=== PATIENT | female | born 1940 | race Caucasian/White ===

== ENCOUNTER 2023-12-24 16:43 | Inpatient (IN) ==
--- NOTE | 2023-12-24 16:55 | Emergency Department Note ---
Impression & Plan Swelling of both lower extremities, SOB (shortness of breath), Atrial fibrillation with rapid ventricular response ED Provider Note NAME: JUAN FLORES AGE: 83 SEX: F : 1940 ARRIVES VIA: Walk-In INFORMANT: Patient, Family member at bedside, triage note ED PROVIDER(S): Rowdy Olson MD CHIEF COMPLAINT: Shortness of breath MEDICAL DECISION MAKING: Patient presents due to concern for shortness of breath. IV was established and blood work was obtained. [id number] obtained to evaluate for potassium. Potassium normal and the patient was ordered IV Lasix 40 mg. Patient states that she does not take a diuretic. Patient was ordered IV Lopressor to help with A-fib RVR which also may be contributory for diastolic dysfunction. Patient has a normal white count hemoglobin and platelet counts patient's kidney function is unremarkable. Hyponatremia noted at 124 with hypokalemia 3.4. Urine and serum osmolality ordered. Patient's BNP is elevated at 678. Troponin is negative. Urinalysis negative for blood or infection. I did update the patient about the findings and recommendations. The patient has had improvement since Lasix and has since urinated. I did speak with the on-call hospital service Dr. Chambers and Yoni Alejandro PA-C and the patient was admitted to the medicine service. Critical Care: I have personally spent 35 minutes of critical care time in direct management of this patient. This includes bedside care, interpretation of diagnostic studies, and testing, discussion with consultants, patient, and family members, and other require inpatient management activities. This 35 minutes is in excess of all separately billable procedures. Discussion w/ other healthcare providers: Yoni Alejandro PA-C [facility] Prior /Outside records reviewed: None Differential diagnosis: Reactive airway disease, pneumonia, pneumothorax, COPD, CHF, ACS, pulmonary embolism, musculoskeletal, GERD as well as other pathologies were considered. Irregularly irregular Diagnostics, as interpreted by me: ECG: A-fib with RVR, rate 113, normal QRS duration, normal axis no ST elevations motion artifact in V6. Possible Q wave in V2 and V3 Cardiac monitoring: An order was placed for continuous cardiac monitoring. The monitor shows a rate of 112 with tachycardic and irregularly irregular rhythm. Patient was placed on pulse oximetry Medical decision rules: None Imaging studies: I informally interpreted the patient's chest x-ray shows pulmonary vascular congestion with formal report to follow. HPI: Patient presents due to concern for worsening shortness of breath. The patient does not locally but was appear for a bridal shower. Patient states that she does have a known history of A-fib is anticoagulated on Xarelto. Patient states she is compliant with her medications. Patient has noticed some increased lower extremity swelling and shortness of breath. The patient's shortness of breath is with exertion at rest and does have occasional orthopnea. Patient denies any chest pains no cough or fever. Patient states that she has noticed some recurrence of swelling which typically resolves but it has been more hesitant to dissipate just in the last 24 to 48 hours. Patient denies any falls or trauma. Patient states in addition to the Xarelto she is on benazepril amlodipine and metoprolol. 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 Family member at bedside, triage note HOME MEDICATIONS: See Below ALLERGIES: See Below VITALS: See Below PHYSICAL EXAMINATION: GENERAL: NAD, non-toxic. EYE EXAM: Normal conjunctiva. PERRL, no anisocoria and EOM's grossly intact w/o pain. OROPHARYNX: Moist mucus membranes, grossly normal dentition. NECK: Trachea midline, no stridor. LUNGS: Clear to auscultation. Normal chest wall mechanics. HEART: NSR, no MRG. ABDOMEN: Abdomen soft, non-tender, no masses, no rebound or guarding. BACK: No CVA TTP. SKIN: No rashes and no bruising. UPPER EXTREMITIES: Upper extremities are grossly normal. LOWER EXTREMITIES: Grossly normal, 3+ symmetric pitting edema without any calf pain or erythema. NEURO EXAM: A&O x3, cranial nerves II-XII grossly intact, normal speech, moves all 4 extremities. Past Med/Surg History Problem List (Updated 12/25/23 @ 11:35 by Rowdy Olson MD) Atrial fibrillation with rapid ventricular response (Acute) Nausea without vomiting Hyponatremia HTN, goal below 130/80 Chronic atrial fibrillation Acute right heart failure SOB (shortness of breath) (Acute) Swelling of both lower extremities (Acute) Spinal stenosis Atrial fibrillation HTN (hypertension) Surgical History History of hysterectomy History of eyelid surgery Hx of appendectomy H/O total knee replacement Family History Other Heart disease Osteoporosis Social History Smoking Status: Never smoker Second Hand Exposure: No; Do You Dip or Chew Tobacco: No; Tobacco Cessation Education Requested by Patient: No Hx Alcohol Use: No Hx Substance Use: No Preferred Language: Greenlandic Communication Ability: Effective Youth Ministry Director Required: No Beliefs That Will Affect Care: None Current Living Situation: Alone Current Living Situation Comment: Lives at home alone, From [facility] Other Information That Helps Us Care for You: No Feels Safe at Home: Yes Safety Concerns: Feels Safe At This Time Assistive Devices: None Allergies Allergies Allergy/AdvReac Type Severity Reaction Status Date / Time pollen extracts Allergy Intermediate ITCHY Verified 12/24/23 17:48 EYES, SNEEZING, CONGESTION tree and shrub pollen Allergy Intermediate ITCHY Verified 12/24/23 17:48 EYES, SNEEZING, CONGESTION Sulfa (Sulfonamide Allergy Unknown HAPPENED Verified 12/24/23 17:48 Antibiotics) A SMALL CHILD Home Meds Home Medications Medication Instructions Recorded Confirmed amlodipine 10 mg tablet 10 mg PO QPM 12/24/23 12/24/23 benazepril 20 1 tab PO QAM 12/24/23 12/24/23 mg-hydrochlorothiazide 25 mg tablet biotin 10 mg tablet 10 mg PO DAILY 12/24/23 12/24/23 cholecalciferol (vitamin D3) 50 50 mcg PO DAILY 12/24/23 12/24/23 mcg (2,000 unit) capsule (Vitamin D3) metoprolol succinate 200 mg 200 mg PO QAM 12/24/23 12/24/23 tablet,extended release 24 hr pregabalin 100 mg capsule 100 mg PO HS 12/24/23 12/24/23 pregabalin 75 mg capsule 75 mg PO BID 12/24/23 12/24/23 rivaroxaban 20 mg tablet (Xarelto) 20 mg PO QPM 12/24/23 12/24/23 Results & Data (ED) Vital Signs Vital Signs - 24 hr 12/24/23 16:47 12/24/23 16:55 12/24/23 16:57 Temperature 36.4 C L Temperature Source Temporal Artery Scan Pulse Rate 124 H Pulse Rate [Apical] 113 H Respiratory Rate 21 20 Respiratory Effort / Characteristics Respiratory Depth Blood Pressure 151/96 H Blood Pressure [Left Arm] Blood Pressure Mean 114 Blood Pressure Mean [Left Arm] Pulse Oximetry 96 93 Oxygen Delivery Method Room Air Room Air Sepsis Recent Fever Within 48 Hours No Sepsis New/Unexplained Change in Mental Status N/A Sepsis Action Taken by Nursing No Action Required 12/24/23 17:00 12/24/23 17:11 12/24/23 18:01 Temperature Temperature Source Pulse Rate 101 H Pulse Rate [Apical] 91 H Respiratory Rate 20 Respiratory Effort / Characteristics Non-Labored Respiratory Depth Normal Blood Pressure Blood Pressure [Left Arm] Blood Pressure Mean Blood Pressure Mean [Left Arm] Pulse Oximetry 98 95 Oxygen Delivery Method Room Air Room Air Sepsis Recent Fever Within 48 Hours Sepsis New/Unexplained Change in Mental Status Sepsis Action Taken by Nursing 12/24/23 18:14 12/24/23 18:15 Temperature Temperature Source Pulse Rate 91 H Pulse Rate [Apical] 91 H Respiratory Rate 27 H Respiratory Effort / Characteristics Non-Labored Respiratory Depth Normal Blood Pressure 145/87 H Blood Pressure [Left Arm] 145/87 H Blood Pressure Mean Blood Pressure Mean [Left Arm] 106 Pulse Oximetry 94 Oxygen Delivery Method Room Air Sepsis Recent Fever Within 48 Hours Sepsis New/Unexplained Change in Mental Status Sepsis Action Taken by Half-Way Medications Current Medication List: was personally reviewed by me Laboratory Data Attestation: I reviewed the patient's lab results. 12/25/23 07:37 12/25/23 07:37 Lab Results 12/24/23 12/24/23 12/24/23 Range/Units 17:00 17:11 17:55 WBC 7.45 (4.8-10.8) K/ul RBC 4.28 (4.20-5.40) M/uL Hgb 12.2 (12.0-16.0) g/dl POC Hgb 13.6 (12.0-16.0) g/dl Hct 35.6 L (37.0-47.0) % POC Hct 40 (37-47) % MCV 83.2 (80.0-100.0) fL MCH 28.5 (25.0-34.0) pg MCHC 34.3 (32.0-36.0) g/dL RDW Std Deviation 39.1 (36.4-46.3) fL RDW Coeff of Lance 13.0 (11.5-14.5) % Plt Count 224 (130-400) K/uL MPV 9.4 (9.4-12.4) fL Immature Gran % (Auto) 0.3 % Neut % (Auto) 71.3 % Lymph % (Auto) 18.3 % Rutherford % (Auto) 8.6 % Eos % (Auto) 0.8 % Baso % (Auto) 0.7 % Neut # (Auto) 5.32 (1.40-6.50) K/uL Lymph # (Auto) 1.36 (1.20-3.40) K/uL Rutherford # (Auto) 0.64 H (0.11-0.59) K/uL Eos # (Auto) 0.06 (0.00-0.50) K/uL Baso # (Auto) 0.05 (0.00-0.20) K/uL Immature Gran # (Auto) 0.02 (0.01-0.20) K/uL POC Sodium 125 L (135-144) mmol/L Sodium 124 L (136-145) mmol/L POC Potassium 3.4 (3.3-5.0) mmol/L Potassium 3.4 L (3.5-5.1) mmol/L POC Chloride 86 L (101-112) mmol/L Chloride 87 L (98-107) mmol/L Carbon Dioxide 26 (21-32) mmol/L POC Total CO2 26 (24-31) mmol/L Anion Gap 11 (3-11) POC Anion Gap 17.0 (16-25) mmol/L POC BUN 10 (7-18) mg/dl BUN 12 (6-23) mg/dl Creatinine 0.73 (0.6-1.2) mg/dl POC Creatinine 0.8 (0.6-1.3) mg/dl Est Cr Clr Drug Dosing Not Reportable Est GFR ( Amer) 87.0 ml/min Est GFR (Non-Af Amer) 75.1 ml/min BUN/Creatinine Ratio 16.4 (10-20) Glucose 115 H (70-99(Fasting)) mg/dl POC Glucose (other) 119 H (70-99) mg/dl Osmolality 259 L (280-300) mOsm/kg Calcium 10.0 (8.6-10.3) mg/dl POC Ioniz Calcium Mark 1.12 (1.12-1.32) mmol/l Phosphorus 3.1 (2.5-4.9) mg/dl Magnesium 1.7 (1.7-2.4) mg/dl Total Bilirubin 1.3 H (0.2-1.0) mg/dl AST 32 (13-39) U/L ALT 14 (7-52) U/L Alkaline Phosphatase 183 H (34-104) U/L Troponin I High Sens 8.8 (0-14) pg/ml B-Natriuretic Peptide 678 H (0-100) pg/ml Total Protein 7.5 (6.0-8.3) gm/dl Albumin 4.8 (3.4-5.0) gm/dl Globulin 2.7 (2.5-4.0) gm/dl Albumin/Globulin Ratio 1.8 (0.9-2) Urine Color Yellow Urine Appearance Clear (Clear) Urine pH 6.0 (4.5-7.5) Ur Specific Garrison 1.011 (1.000-1.030) Urine Protein Negative (Negative) Urine Glucose (UA) Negative (Negative) Urine Ketones Negative (Negative) Urine Blood Negative (Negative) Urine Nitrite Negative (Negative) Urine Bilirubin Negative (Negative) Urine Urobilinogen Negative (Negative) Ur Leukocyte Esterase Negative (Negative) Urine Osmolality 352 L (500-800) mOsm/kg Urine Sodium 97 mmol/L Urine Potassium 38.8 mmol/L Urine Chloride 122 mmol/L Administered Medications Acetaminophen (Acetaminophen 500 Mg Tab) 1,000 mg PO Q8H RACHEL Stop: 01/23/24 21:59 Last Admin: 12/25/23 05:32 Dose: 1,000 mg Documented By: Admin: 12/24/23 22:39 Dose: 1,000 mg Documented By: DAAmado Furosemide (Furosemide 40 Mg/4 Ml Vial) 40 mg IV QAM RACHEL Stop: 01/24/24 08:59 Last Admin: 12/25/23 08:08 Dose: 40 mg Documented By: BT Magnesium Sulfate/Dextrose (Magnesium Sulfate / D5w) 1 gm in 100 mls @ 50 mls/hr IV ONE ONE Stop: 12/25/23 12:00 Last Admin: 12/25/23 11:14 Dose: 50 mls/hr Documented By: BT Lisinopril (Lisinopril 10 Mg Tab) [facility] Stop: 01/24/24 08:59 Last Admin: 12/25/23 08:07 Dose: 10 mg Documented By: BT Magnesium Oxide (Magnesium Oxide 400 Mg Tab) 400 mg PO BID [facility] Stop: 01/24/24 10:14 Last Admin: 12/25/23 11:14 Dose: 400 mg Documented By: BT Metoprolol Succinate (Metoprolol Succ 50mg Ext Rel Tab) 200 [facility] Stop: 01/24/24 08:59 Last Admin: 12/25/23 08:07 Dose: 200 mg Documented By: BT Metoprolol Tartrate (Metoprolol Tartrate 1 Mg/Ml Vial) 5 mg IV Q5M PRN PRN Reason: Tachycardia Stop: 01/23/24 18:02 Last Admin: 12/24/23 18:15 Dose: 5 mg Documented By: TATYANA Oxycodone HCl (Oxycodone Hcl Ir 5 Mg Tab (Immediate Release)) 5 mg PO Q6H PRN PRN Reason: Moderate Pain (Scale 4, 5, 6) Stop: 01/07/24 19:02 Last Admin: 12/24/23 22:39 Dose: 5 mg Documented By: LANA Potassium Chloride (Potassium Chloride Crtab 20 Meq Tabcr) 40 meq [facility] Stop: 01/24/24 08:59 Last Admin: 12/25/23 08:07 Dose: 40 meq Documented By: LOU Rivaroxaban (Rivaroxaban 20 Mg Tab) 20 mg PO QDD [facility] Stop: 01/23/24 21:59 Last Admin: 12/24/23 23:08 Dose: 20 mg Documented By: LANA Vitamin D (Cholecalciferol 25 Mcg (1000 Units) Tab) 50 mcg PO DAILY [facility] Stop: 01/24/24 08:59 Last Admin: 12/25/23 08:07 Dose: 50 mcg Documented By: LOU Discontinued Medications Furosemide (Furosemide 40 Mg/4 Ml Vial) 40 mg IV ONE ONE Stop: 12/24/23 17:15 Last Admin: 12/24/23 17:19 Dose: 40 mg Documented By: TATYANA Ondansetron HCl (Ondansetron Inj 2 Mg/Ml 2 Ml Vial) 4 mg IV NOW STA Stop: 12/24/23 20:19 Last Admin: 12/24/23 20:48 Dose: 4 mg Documented By: MLAmado Potassium Chloride (Potassium Chloride Crtab 20 Meq Tabcr) 40 meq PO NOW STA Stop: 12/24/23 18:25 Last Admin: 12/24/23 18:44 Dose: 40 meq Documented By: ES Potassium Chloride (Potassium Chloride Crtab 20 Meq Tabcr) 20 meq PO NOW STA Stop: 12/25/23 06:47 Last Admin: 12/25/23 08:11 Dose: 20 meq Documented By: BT Imaging Data Radiologist's Impression: Chest X-Ray 12/24/23 17:10 SINGLE VIEW CHEST CLINICAL HISTORY: Dyspnea FINDINGS: 2 AP, portable, upright chest radiographs are obtained. No prior studies are available for comparison at the time of dictation. The heart is enlarged noting atherosclerotic calcification of the thoracic aorta. There is pulmonary vascular congestion. No airspace consolidation or large pleural effusion is identified. Scarring/atelectasis is seen at the lung bases. No pneumothorax is seen. The skeletal structures are osteopenic. The bony thorax is grossly intact. IMPRESSION: Cardiomegaly with mild pulmonary vascular congestion. ACT 112: Negative or not required by law. Electronically signed by: Abe Chaudhary M.D. 12/24/2023 5:56 PM Discharge Plan Visit Data Chief Complaint: Shortness of Breath/Dyspnea Stated Complaint: SOB,POSSIBLE MED REACTION ED Provider: Rowdy Olson Discharge Problem: Swelling of both lower extremities, SOB (shortness of breath), Atrial fibrillation with rapid ventricular response Patient Disposition: Admitted As Inpatient Discharge Instructions Interventions: ED Discharge Assessment Last Done: 12/24/23 21:50
[2023-12-24] MEDS: FUROSEMIDE 40 MG/4 ML VIAL IV ONE (17:19)
[2023-12-24 17:24] LABS: iSTAT Creatinine 0.8 mg/dl (0.6-1.3); iSTAT Hemoglobin 13.6 g/dl (12.0-16.0); iSTAT Ionized Calcium 1.12 mmol/l (1.12-1.32); iSTAT Potassium 3.4 mmol/L (3.3-5.0)
[2023-12-24 17:33] LABS: Basophils # (auto) 0.05 K/uL (0.00-0.20); Basophils % (auto) 0.7 %; Eosinophils # (auto) 0.06 K/uL (0.00-0.50); Eosinophils % (auto) 0.8 %; Hematocrit (blood only) 35.6 % (37.0-47.0); Hemoglobin 12.2 g/dl (12.0-16.0); Immature Granulocytes # (auto) 0.02 K/uL (0.01-0.20); Immature Granulocytes % (auto) 0.3 %; Lymphocytes # (auto) 1.36 K/uL (1.20-3.40); Lymphocytes % (auto) 18.3 %; Mean Corpuscular Hemoglobin 28.5 pg (25.0-34.0); Mean Corpuscular Hgb Conc 34.3 g/dL (32.0-36.0); Mean Corpuscular Volume 83.2 fL (80.0-100.0); Mean Platelet Volume 9.4 fL (9.4-12.4); Monocytes # (auto) 0.64 K/uL (0.11-0.59); Monocytes % (auto) 8.6 %; Neutrophils # (auto) 5.32 K/uL (1.40-6.50); Neutrophils % (auto) 71.3 %; Platelet Count 224 K/uL (130-400); RDW Standard Deviation 39.1 fL (36.4-46.3); Red Blood Count 4.28 M/uL (4.20-5.40); White Blood Count 7.45 K/ul (4.8-10.8)
[2023-12-24 17:52] LABS: Alanine Aminotransferase 14 U/L (7-52); Albumin Globulin Ratio 1.8 (0.9-2); Albumin Level 4.8 gm/dl (3.4-5.0); Alkaline Phosphatase 183 U/L (34-104); Anion Gap 11 (3-11); Aspartate Aminotransferase 32 U/L (13-39); BUN Creatinine Ratio 16.4 (10-20); Bilirubin,Total 1.3 mg/dl (0.2-1.0); Blood Urea Nitrogen 12 mg/dl (6-23); Carbon Dioxide 26 mmol/L (21-32); Chloride 87 mmol/L (98-107); Est GFR (Non-African American) 75.1 ml/min; Globulin 2.7 gm/dl (2.5-4.0); Glucose 115 mg/dl (70-99(Fasting)); Magnesium 1.7 mg/dl (1.7-2.4); Phosphorus 3.1 mg/dl (2.5-4.9); Potassium 3.4 mmol/L (3.5-5.1); Sodium 124 mmol/L (136-145); Total Protein 7.5 gm/dl (6.0-8.3)
--- NOTE | 2023-12-24 17:57 | XRay Report ---
SINGLE VIEW CHEST CLINICAL HISTORY: Dyspnea FINDINGS: 2 AP, portable, upright chest radiographs are obtained. No prior studies are available for comparison at the time of dictation. The heart is enlarged noting atherosclerotic calcification of th e thoracic aorta. There is pulmonary vascular congestion. No airspace consolidation or large pleural effusion is identified. Scarring/atelectasis is seen at the lung bases. No pneumothorax is seen. The skeletal structures are osteopenic. The bony thorax is grossly intact. IMPRESSION: Cardiomegaly with mild pulmonary vascular congestion. ACT 112: Negative or not required by law. Electronically signed by: Abe Chaudhary M.D. 12/24/2023 5:56 PM
[2023-12-24 18:10] LABS: Appearance Urine Clear (Clear); Bilirubin Urine Negative (Negative); Blood Urine Negative (Negative); Color Urine Yellow; Glucose Urine UA Negative (Negative); Ketones Urine Negative (Negative); Leukocyte Esterase Urine Negative (Negative); Nitrite Urine Negative (Negative); Protein Urine Negative (Negative); Specific Gravity Urine 1.011 (1.000-1.030); Urobilinogen Urine Negative (Negative)
[2023-12-24] MEDS: METOPROLOL TARTRATE 1 MG/ML VIAL IV PRN (18:15)
[2023-12-24 18:26] LABS: Urine Potassium 38.8 mmol/L
--- NOTE | 2023-12-24 18:34 | History & Physical Report ---
Date of Service December 24, 2023 Assessment & Plan (1) Swelling of both lower extremities: (2) SOB (shortness of breath): Plan: This is an 83yo F with a PMH of HTN, atrial fibrillation on Xarelto, spinal stenosis and other medical problems listed below who presents with worsening swelling of lower extremities x 2 days. BLE edema and 12# weight gain over the past week BNP 678, HS troponin WNL CXR with Cardiomegaly with mild pulmonary vascular congestion No known h/o CHF Lives in [place] (in town for a family event), follows with cardiology at [facility] in [place] Given 40mg IV lasix in ED Strict I&Os, daily weights, low sodium diet Cardiology consult, 2D echo (3) Atrial fibrillation: Plan: Continue Toprol, Xarelto for stroke ppx (4) HTN (hypertension): Plan: Holding amlodipine with BLE edema, holding hctz but will switch devon to lisinopril while admitted, continue Toprol as above (5) Spinal stenosis: Plan: Worsening lower left sided back pain with radiation down leg - has evaluation with spinal surgery at [facility] next week Holding lyrics as it's possibly contributing to BLE edema Scheduled Tylenol, PRN oxy for moderate pain and PRN dilaudid for severe pain DVT Ppx: Xarelto Code status:DNR PCP: Lives in [place] Dispo: Admitted to PCU Patient seen in collaboration with Dr. Chambers. Please see addendum. I spent a total of 75 minutes coordinating, documenting, and providing care for this patient excluding time spent in the performance of separately billed services. History of Present Illness Chief Complaint: BLE edema Primary Care Provider: ROXANN ADEN This is an 83yo F with a PMH of HTN, atrial fibrillation on Xarelto, spinal stenosis and other medical problems listed below who presents with worsening swelling of lower extremities x 2 days. Patient lives in [place] but is in town for a bridal shower and has developed SOB and endorses 12 pound weight gain in the past week. Recent medication change of increased Lyrica dose for worsening radicular pain from spinal stenosis. Follows with cardiology at [facility] in [place]. Did not take Lyrica since yesterday afternoon. No amlodipine since yesterday. Denies history of CHF. No F/C, headache, lightheadedness, CP, N/V, abd pain, dysuria, diarrhea or constipation. Allergies Allergy/AdvReac Type Severity Reaction Status Date / Time pollen extracts Allergy Intermediate ITCHY Verified 12/24/23 17:48 EYES, SNEEZING, CONGESTION tree and shrub pollen Allergy Intermediate ITCHY Verified 12/24/23 17:48 EYES, SNEEZING, CONGESTION Sulfa (Sulfonamide Allergy Unknown HAPPENED Verified 12/24/23 17:48 Antibiotics) A SMALL CHILD Home Medications Medication Instructions Recorded Confirmed Type amlodipine 10 mg tablet 10 mg PO QPM 12/24/23 12/24/23 History benazepril 20 1 tab PO QAM 12/24/23 12/24/23 History mg-hydrochlorothiazide 25 mg tablet biotin 10 mg tablet 10 mg PO DAILY 12/24/23 12/24/23 History cholecalciferol (vitamin D3) 50 50 mcg PO DAILY 12/24/23 12/24/23 History mcg (2,000 unit) capsule (Vitamin D3) metoprolol succinate 200 mg 200 mg PO QAM 12/24/23 12/24/23 History tablet,extended release 24 hr pregabalin 100 mg capsule 100 mg PO HS 12/24/23 12/24/23 History pregabalin 75 mg capsule 75 mg PO BID 12/24/23 12/24/23 History rivaroxaban 20 mg tablet (Xarelto) 20 mg PO QPM 12/24/23 12/24/23 History Past Med/Surg History Problem List SOB (shortness of breath) Swelling of both lower extremities Spinal stenosis Atrial fibrillation HTN (hypertension) Surgical History History of hysterectomy History of eyelid surgery Hx of appendectomy H/O total knee replacement Family History Other Heart disease Osteoporosis Social History Smoking Status: Never smoker Hx Alcohol Use: Yes Alcohol type: wine Alcohol Intake Frequency: 2-3 x/Week Hx Substance Use: No Preferred Language: Latvian Feels Safe at Home: Yes Review of Systems Review of Systems: At least ten systems reviewed and negative except as noted in the HPI. Physical Exam Physical Exam: Please see Dr. Chambers' addendum for physical exam. Results & Data Results & Data Vital Signs (Past 12 Hours) Vital Signs Temp Pulse Pulse Resp BP BP Pulse Ox 12/24/23 18:15 91 H 145/87 H 12/24/23 18:14 91 H 27 H 145/87 H 94 12/24/23 18:01 91 H 20 95 12/24/23 17:11 98 12/24/23 17:00 101 H 12/24/23 16:57 113 H 20 12/24/23 16:55 93 12/24/23 16:47 36.4 C L 124 H 21 151/96 H 96 O2 Del Method 12/24/23 18:15 12/24/23 18:14 Room Air 12/24/23 18:01 Room Air 12/24/23 17:11 Room Air 12/24/23 17:00 12/24/23 16:57 12/24/23 16:55 Room Air 12/24/23 16:47 Room Air Laboratory Results Short CBC 12/24/23 Range/Units 17:00 WBC 7.45 (4.8-10.8) K/ul Hgb 12.2 (12.0-16.0) g/dl Hct 35.6 L (37.0-47.0) % Plt Count 224 (130-400) K/uL BMP 12/24/23 17:00 Sodium 124 L Potassium 3.4 L Chloride 87 L Carbon Dioxide 26 BUN 12 Creatinine 0.73 Glucose 115 H Calcium 10.0 Liver Function 12/24/23 Range/Units 17:00 Total Bilirubin 1.3 H (0.2-1.0) mg/dl AST 32 (13-39) U/L ALT 14 (7-52) U/L Alkaline Phosphatase 183 H (34-104) U/L Albumin 4.8 (3.4-5.0) gm/dl Urine 12/24/23 Range/Units 17:55 Urine Color Yellow Urine Appearance Clear (Clear) Urine pH 6.0 (4.5-7.5) Ur Specific [place] 1.011 (1.000-1.030) Urine Protein Negative (Negative) Urine Glucose (UA) Negative (Negative) Diagnostic Findings Chest X-Ray 12/24/23 17:10 SINGLE VIEW CHEST CLINICAL HISTORY: Dyspnea FINDINGS: 2 AP, portable, upright chest radiographs are obtained. No prior studies are available for comparison at the time of dictation. The heart is enlarged noting atherosclerotic calcification of the thoracic aorta. There is pulmonary vascular congestion. No airspace consolidation or large pleural effusion is identified. Scarring/atelectasis is seen at the lung bases. No pneumothorax is seen. The skeletal structures are osteopenic. The bony thorax is grossly intact. IMPRESSION: Cardiomegaly with mild pulmonary vascular congestion. ACT 112: Negative or not required by law. Electronically signed by: Abe Chaudhary M.D. 12/24/2023 5:56 PM ECG Additional Comments: EKG reviewed - a fib with RVR 113 bpm Code Status & VTE Plan VTE Prophylaxis Plan VTE Prophylaxis will be ordered: Yes Supervising Physician Co-Signing Physician Notes I have seen and discussed the case with the collaborating advanced practitioner. I agree with the above H&P. I have reviewed and confirmed the patients medical history, the findings on physical examination, and the patients diagnosis and treatment plan with PA-C and agree with the information documented. In short, Ms. Browne is an 83 year old woman with history of atrial fibrillation on xarelto, HTN, spinal stenosis who is admitted for SOB and swelling concerning for new heart failure exacerbation. Patient reports starting increased dosing of pregabalin 1 month ago, and in last week has felt her abdo men bloating, as well as her weight uptrending by ten pounds. In last 2 days, she noted SOB and BLE swelling. Denies chest pain or palpitations.. GENERAL APPEARANCE: AxOx4, generally well-appearing female no acute distress. HEENT: NC, AT. MMM. EOMI, clear conjunctiva, oropharynx clear. NECK: Supple without lymphadenopathy. No stiffness or restricted ROM. HEART: irregularly irregular, tachycardic to 90s-110s in room LUNGS: CTAB, moving air well. No crackles or wheezes are heard. ABDOMEN: firm, nontender, nondistended with good bowel sounds heard. BACK: No CVAT, no obvious deformity. EXTREMITIES: Without cyanosis, clubbing. BLE 2+ pitting edema NEUROLOGICAL: Grossly nonfocal. Alert and oriented, moving all 4 extremities. CN not formally tested but appear grossly intact. Observed to ambulate with normal gait. Skin: Warm and dry without any rash. #Hypervolemic Hyponatremia NA 125, osmo 259 low osmo urine suspect 2/2 volume -IV lasix Repeat BMP this evening #Acute Heart Failure, New #Volume overload Patient presents with new symptoms of heart failure and evidence of volume overload. Suspect secondary to volume from pregabalin, vs tachymediated from a fib Denies history of HF or being hospitalized for diuersis/volume issues BNP 678 EKG a fib with rate 113 - HgbA1C, Lipid panel, TSH - Formal TTE, telemetry - Strict I/O, daily standing weights - Goal net negative: 1-2 L - Home diuretics: HCTZ - GDMT: *BetaB: continue metoprolol 200mg qam *RAAS: benazepril to lisinopril 20mg qam consider further gdmt contingent on course Cards consult -Discontinue amlodipine and pregabalin - s/p lasix 40 IV in the ED - Will start aggressive diuresis with IV lasix 40mg for goal net negative 1-2L - Strict I/Os, daily weights - HH 1.8L fluid restriction - Replete K>4, Mg>2 #Atrial Fibrillation, not cllear if permanent or paroxysmal denies symptoms - Rate Control: meotprolol 200mg qm XL - Anticoagulation: xarelto - CBC, BMP, TSH #Spinal stenosis tylenol mild, oxy po moderate, dilaudid severe Hold pregablain given notable volume retention rest of plan as above I spent a total of 35 minutes coordinating, documenting, and providing care for this patient excluding time spent in the performance of separately billed services. All of the aforementioned completed outside of collaborating with the assigned advanced practitioner for a full treatment plan. I have reviewed the advanced practitioner's documentation, and I agree with, and take responsibility for the plan of care
[2023-12-24] MEDS: POTASSIUM CHLORIDE CRTAB 20 MEQ TABCR PO STA (18:44)
[2023-12-24 18:58] LABS: Troponin I High Sensitivity 8.8 pg/ml (0-14)
[2023-12-24] MEDS ORDERED: HYDROmorphone INJ 0.5 MG/0.5 ML SYR IV PRN (19:03)
[2023-12-24] MEDS: ONDANSETRON INJ 2 MG/ML 2 ML VIAL IV STA (20:48)
[2023-12-24 20:59] LABS: BUN Creatinine Ratio 14.7 (10-20); Calcium 9.5 mg/dl (8.6-10.3); Creatinine Clr Calc Pharmacy 52.8 ml/min; Est GFR (African American) 84.2 ml/min; Est GFR (Non-African American) 72.7 ml/min; Potassium 3.4 mmol/L (3.5-5.1)
[2023-12-24] MEDS: ACETAMINOPHEN 500 MG TAB PO SCH (22:39)
[2023-12-24] MEDS: oxyCODONE HCL IR 5 MG TAB (IMMEDIATE RELEASE) PO PRN (22:39)
[2023-12-24] MEDS: RIVAROXABAN 20 MG TAB PO SCH (23:08)
--- NOTE | 2023-12-25 07:19 | Electrocardiogram Report ---
Test Reason : Blood Pressure : / mmHG Vent. Rate : 113 BPM Atrial Rate : 000 BPM P-R Int : 000 ms QRS Dur : 082 ms QT Int : 282 ms P-R-T Axes : 000 080 -48 degrees QTc Int : 386 ms Atrial fibrillation with rapid ventricular response Low voltage QRS Abnormal ECG No previous ECGs available Confirmed by Je Mckeon ([id number]) on 12/25/2023 7:18:32 AM Referred By: REFERRED SELF Confirmed By:Vinnie Mckeon
[2023-12-25] MEDS: POTASSIUM CHLORIDE CRTAB 20 MEQ TABCR PO SCH (08:07)
[2023-12-25] MEDS: METOPROLOL SUCC 50MG EXT REL TAB PO SCH (08:07)
[2023-12-25] MEDS: CHOLECALCIFEROL 25 MCG (1000 UNITS) TAB PO SCH (08:07)
[2023-12-25] MEDS: lisinopril 10 MG TAB PO SCH (08:07)
[2023-12-25] MEDS: FUROSEMIDE 40 MG/4 ML VIAL IV SCH ×2 (08:08→15:53)
[2023-12-25] MEDS: POTASSIUM CHLORIDE CRTAB 20 MEQ TABCR PO STA (08:11)
[2023-12-25 08:21] LABS: Hematocrit (blood only) 33.8 % (37.0-47.0); Hemoglobin 11.6 g/dl (12.0-16.0); Mean Corpuscular Hemoglobin 28.3 pg (25.0-34.0); Mean Corpuscular Hgb Conc 34.3 g/dL (32.0-36.0); Mean Corpuscular Volume 82.4 fL (80.0-100.0); Mean Platelet Volume 9.4 fL (9.4-12.4); Platelet Count 198 K/uL (130-400); RDW Coefficient of Variation 12.8 % (11.5-14.5); RDW Standard Deviation 38.8 fL (36.4-46.3); White Blood Count 6.62 K/ul (4.8-10.8)
[2023-12-25 08:37] LABS: BUN Creatinine Ratio 13.7 (10-20); Calcium 9.4 mg/dl (8.6-10.3); Chol HDL Ratio 1.6 (0-5); Creatinine Clr Calc Pharmacy 53.2 ml/min; Est GFR (Non-African American) 75.1 ml/min; Magnesium 1.6 mg/dl (1.7-2.4); Phosphorus 3.4 mg/dl (2.5-4.9); Potassium 3.5 mmol/L (3.5-5.1)
[2023-12-25 08:51] LABS: Thyroid Stimulating Hormone 4.501 uIu/ml (0.300-4.500)
[2023-12-25 09:26] LABS: T4 Free Thyroxine 1.2 ng/dl (0.61-1.60)
--- NOTE | 2023-12-25 09:59 | Hospitalist Progress Note ---
Date of Service December 25, 2023 Assessment & Plan (1) Swelling of both lower extremities: (2) SOB (shortness of breath): Plan: This is an 83yo F with a PMH of HTN, atrial fibrillation on Xarelto, spinal stenosis and other medical problems listed below who presents with worsening swelling of lower extremities x 2 days. BLE edema and 12 lbs weight gain over the past week BNP 678, HS troponin WNL CXR with Cardiomegaly with mild pulmonary vascular congestion No known h/o CHF Lives in [place] (in town for a family event), follows with cardiology at [facility] in [place] Given 40mg IV lasix in ED -> cont. w/ 40 iv lasix daily Strict I&Os, daily weights, low sodium diet Cardiology consulted, 2D echo - pending TSH 4.5 A1c pending (3) Atrial fibrillation: Plan: Continue Toprol, Xarelto for stroke ppx (4) HTN (hypertension): Plan: Holding amlodipine with BLE edema, holding hctz but will switch devon to lisino pril while admitted, continue Toprol as above (5) Spinal stenosis: Plan: Worsening lower left sided back pain with radiation down leg - has evaluation with spinal surgery at [facility] next week Holding lyrica as it's possibly contributing to BLE edema Scheduled Tylenol, PRN oxy for moderate pain and PRN dilaudid for severe pain DVT Ppx: Xarelto Code status:DNR PCP: Lives in [place] Dispo: PCU Admission and Anticipated Discharge Date Admission Date: December 24, 2023 Subjective Pt seen in follow up of LE edema (concern for CHF), shortness of breath cardiology consulted, echo pending Pt is laying in bed in NAD Currently denies any shortness of breath and says LE edema is much improved from yesterday, received IV lasix No fever, chills, chest pain, palpitations, abd. pain Reportedly, she has a long standing hx of Afib on xarelto Review of Systems Review of Systems: All systems reviewed & are unremarkable except as noted in Subjective Physical Exam Physical Exam: GENERAL APPEARANCE: AxOx4, generally well-appearing female no acute distress. HEENT: NC, AT. MMM. EOMI NECK: Supple HEART: irregularly irregular, HR in 70s LUNGS: CTAB, moving air well. No crackles or wheezes are heard. ABDOMEN: nontender, nondistended, +bowel sounds heard. BACK: No CVAT, no obvious deformity. EXTREMITIES: BLE 1+ edema (improved), moves extremities NEUROLOGICAL: Alert and oriented, answers appropriately, speech fluent, moving extremities. Skin: Warm and dry Results & Data Results & Data Vital Signs (Past 12 Hours) Vital Signs Temp Pulse Resp BP Pulse Ox O2 Del Method 12/25/23 07:40 36.8 C 92 H 18 129/83 93 Room Air 12/25/23 02:52 36.6 C 100 H 18 145/99 H 90 Room Air 12/24/23 22:50 Room Air 12/24/23 22:37 36.5 C 101 H 20 150/103 H 91 Room Air Laboratory Results 12/25/23 12/24/23 12/24/23 Range/Units 07:37 20:31 17:55 WBC 6.62 (4.8-10.8) K/ul RBC 4.10 L (4.20-5.40) M/uL Hgb 11.6 L (12.0-16.0) g/dl POC Hgb (12.0-16.0) g/dl Hct 33.8 L (37.0-47.0) % POC Hct (37-47) % MCV 82.4 (80.0-100.0) fL MCH 28.3 (25.0-34.0) pg MCHC 34.3 (32.0-36.0) g/dL RDW Std Deviation 38.8 (36.4-46.3) fL RDW Coeff of Lance 12.8 (11.5-14.5) % Plt Count 198 (130-400) K/uL MPV 9.4 (9.4-12.4) fL Immature Gran % (Auto) % Neut % (Auto) % Lymph % (Auto) % [place] % (Auto) % Eos % (Auto) % Baso % (Auto) % Neut # (Auto) (1.40-6.50) K/uL Lymph # (Auto) (1.20-3.40) K/uL [place] # (Auto) (0.11-0.59) K/uL Eos # (Auto) (0.00-0.50) K/uL Baso # (Auto) (0.00-0.20) K/uL Immature Gran # (Auto) (0.01-0.20) K/uL POC Sodium (135-144) mmol/L Sodium 125 L 123 L (136-145) mmol/L POC Potassium (3.3-5.0) mmol/L Potassium 3.5 3.4 L (3.5-5.1) mmol/L POC Chloride (101-112) mmol/L Chloride 88 L 87 L (98-107) mmol/L Carbon Dioxide 27 25 (21-32) mmol/L POC Total CO2 (24-31) mmol/L Anion Gap 10 11 (3-11) POC Anion Gap (16-25) mmol/L POC BUN (7-18) mg/dl BUN 10 11 (6-23) mg/dl Creatinine 0.73 0.75 (0.6-1.2) mg/dl POC Creatinine (0.6-1.3) mg/dl Est Cr Clr Drug Dosing 53.2 52.8 Est GFR ( Amer) 87.0 84.2 ml/min Est GFR (Non-Af Amer) 75.1 72.7 ml/min BUN/Creatinine Ratio 13.7 14.7 (10-20) Glucose 89 129 H (70-99(Fasting)) mg/dl POC Glucose (other) (70-99) mg/dl Estimat Average Glucose Pending Hemoglobin A1c Pending Osmolality (280-300) mOsm/kg Calcium 9.4 9.5 (8.6-10.3) mg/dl POC Ioniz Calcium Mark (1.12-1.32) mmol/l Phosphorus 3.4 (2.5-4.9) mg/dl Magnesium 1.6 L (1.7-2.4) mg/dl Total Bilirubin (0.2-1.0) mg/dl AST (13-39) U/L ALT (7-52) U/L Alkaline Phosphatase (34-104) U/L Troponin I High Sens (0-14) pg/ml B-Natriuretic Peptide (0-100) pg/ml Total Protein (6.0-8.3) gm/dl Albumin (3.4-5.0) gm/dl Globulin (2.5-4.0) gm/dl Albumin/Globulin Ratio (0.9-2) Triglycerides 54 (0-150) mg/dl Cholesterol 120 (0-200) mg/dl LDL Cholesterol, Calc 36 mg/dl VLDL Cholesterol, Calc 11 (0-30) mg/dl HDL Cholesterol 73 mg/dl Cholesterol/HDL Ratio 1.6 (0-5) TSH 4.501 H (0.300-4.500) uIu/ml Free T4 1.20 (0.61-1.60) ng/dl Urine Color Yellow Urine Appearance Clear (Clear) Urine pH 6.0 (4.5-7.5) Ur Specific [place] 1.011 (1.000-1.030) Urine Protein Negative (Negative) Urine Glucose (UA) Negative (Negative) Urine Ketones Negative (Negative) Urine Blood Negative (Negative) Urine Nitrite Negative (Negative) Urine Bilirubin Negative (Negative) Urine Urobilinogen Negative (Negative) Ur Leukocyte Esterase Negative (Negative) Urine Osmolality 352 L (500-800) mOsm/kg Urine Sodium 97 mmol/L Urine Potassium 38.8 mmol/L Urine Chloride 122 mmol/L 12/24/23 12/24/23 Range/Units 17:11 17:00 WBC 7.45 (4.8-10.8) K/ul RBC 4.28 (4.20-5.40) M/uL Hgb 12.2 (12.0-16.0) g/dl POC Hgb 13.6 (12.0-16.0) g/dl Hct 35.6 L (37.0-47.0) % POC Hct 40 (37-47) % MCV 83.2 (80.0-100.0) fL MCH 28.5 (25.0-34.0) pg MCHC 34.3 (32.0-36.0) g/dL RDW Std Deviation 39.1 (36.4-46.3) fL RDW Coeff of [place] 13.0 (11.5-14.5) % Plt Count 224 (130-400) K/uL MPV 9.4 (9.4-12.4) fL Immature Gran % (Auto) 0.3 % Neut % (Auto) 71.3 % Lymph % (Auto) 18.3 % [place] % (Auto) 8.6 % Eos % (Auto) 0.8 % Baso % (Auto) 0.7 % Neut # (Auto) 5.32 (1.40-6.50) K/uL Lymph # (Auto) 1.36 (1.20-3.40) K/uL [place] # (Auto) 0.64 H (0.11-0.59) K/uL Eos # (Auto) 0.06 (0.00-0.50) K/uL Baso # (Auto) 0.05 (0.00-0.20) K/uL Immature Gran # (Auto) 0.02 (0.01-0.20) K/uL POC Sodium 125 L (135-144) mmol/L Sodium 124 L (136-145) mmol/L POC Potassium 3.4 (3.3-5.0) mmol/L Potassium 3.4 L (3.5-5.1) mmol/L POC Chloride 86 L (101-112) mmol/L Chloride 87 L (98-107) mmol/L Carbon Dioxide 26 (21-32) mmol/L POC Total CO2 26 (24-31) mmol/L Anion Gap 11 (3-11) POC Anion Gap 17.0 (16-25) mmol/L POC BUN 10 (7-18) mg/dl BUN 12 (6-23) mg/dl Creatinine 0.73 (0.6-1.2) mg/dl POC Creatinine 0.8 (0.6-1.3) mg/dl Est Cr Clr Drug Dosing Not Reportable Est GFR ( Amer) 87.0 ml/min Est GFR (Non-Af Amer) 75.1 ml/min BUN/Creatinine Ratio 16.4 (10-20) Glucose 115 H (70-99(Fasting)) mg/dl POC Glucose (other) 119 H (70-99) mg/dl Estimat Average Glucose Hemoglobin A1c Osmolality 259 L (280-300) mOsm/kg Calcium 10.0 (8.6-10.3) mg/dl POC Ioniz Calcium Mark 1.12 (1.12-1.32) mmol/l Phosphorus 3.1 (2.5-4.9) mg/dl Magnesium 1.7 (1.7-2.4) mg/dl Total Bilirubin 1.3 H (0.2-1.0) mg/dl AST 32 (13-39) U/L ALT 14 (7-52) U/L Alkaline Phosphatase 183 H (34-104) U/L Troponin I High Sens 8.8 (0-14) pg/ml B-Natriuretic Peptide 678 H (0-100) pg/ml Total Protein 7.5 (6.0-8.3) gm/dl Albumin 4.8 (3.4-5.0) gm/dl Globulin 2.7 (2.5-4.0) gm/dl Albumin/Globulin Ratio 1.8 (0.9-2) Triglycerides (0-150) mg/dl Cholesterol (0-200) mg/dl LDL Cholesterol, Calc mg/dl VLDL Cholesterol, Calc (0-30) mg/dl HDL Cholesterol mg/dl Cholesterol/HDL Ratio (0-5) TSH (0.300-4.500) uIu/ml Free T4 (0.61-1.60) ng/dl Urine Color Urine Appearance (Clear) Urine pH (4.5-7.5) Ur Specific [place] (1.000-1.030) Urine Protein (Negative) Urine Glucose (UA) (Negative) Urine Ketones (Negative) Urine Blood (Negative) Urine Nitrite (Negative) Urine Bilirubin (Negative) Urine Urobilinogen (Negative) Ur Leukocyte Esterase (Negative) Urine Osmolality (500-800) mOsm/kg Urine Sodium mmol/L Urine Potassium mmol/L Urine Chloride mmol/L Medications Administered Current Inpatient Medications Acetaminophen (Acetaminophen 500 Mg Tab) 1,000 mg PO Q8H [facility] Stop: 01/23/24 21:59 Last Admin: 12/25/23 05:32 Dose: 1,000 mg Furosemide (Furosemide 40 Mg/4 Ml Vial) 40 mg IV [facility] Stop: 01/24/24 08:59 Last Admin: 12/25/23 08:08 Dose: 40 mg Hydromorphone HCl (Hydromorphone Inj 0.5 Mg/0.5 Ml Syr) 0.5 mg IV Q6H PRN PRN Reason: Severe Pain (Scale 7, 8, 9,10) Stop: 01/07/24 19:02 Lisinopril (Lisinopril 10 Mg Tab) 10 mg PO [facility] Stop: 01/24/24 08:59 Last Admin: 12/25/23 08:07 Dose: 10 mg Metoprolol Succinate (Metoprolol Succ 50mg Ext Rel Tab) 200 mg PO [facility] Stop: 01/24/24 08:59 Last Admin: 12/25/23 08:07 Dose: 200 mg Metoprolol Tartrate (Metoprolol Tartrate 1 Mg/Ml Vial) 5 mg IV Q5M PRN PRN Reason: Tachycardia Stop: 01/23/24 18:02 Last Admin: 12/24/23 18:15 Dose: 5 mg Oxycodone HCl (Oxycodone Hcl Ir 5 Mg Tab (Immediate Release)) 5 mg PO Q6H PRN PRN Reason: Moderate Pain (Scale 4, 5, 6) Stop: 01/07/24 19:02 Last Admin: 12/24/23 22:39 Dose: 5 mg Potassium Chloride (Potassium Chloride Crtab 20 Meq Tabcr) 40 meq PO QAM [facility] Stop: 01/24/24 08:59 Last Admin: 12/25/23 08:07 Dose: 40 meq Rivaroxaban (Rivaroxaban 20 Mg Tab) 20 mg PO QDD [facility] Stop: 01/23/24 21:59 Last Admin: 12/24/23 23:08 Dose: 20 mg Vitamin D (Cholecalciferol 25 Mcg (1000 Units) Tab) 50 mcg PO DAILY [facility] Stop: 01/24/24 08:59 Last Admin: 12/25/23 08:07 Dose: 50 mcg
--- NOTE | 2023-12-25 10:31 | Cardiology Consultation ---
<Statement entered by Patti Vann MD - 12/25/23 17:44> I have reviewed the advanced practitioner's documentation on the date of service referenced in note, and I agree with, and take responsibility for the plan of care. 83-year-old female with known history of chronic atrial fibrillation on Xarelto hypertension was visiting family here from [place] presented with significant weight gain and shortness of breath. On exam bilateral pitting pedal edema regular heart rate Impression and plan acute on chronic right heart failure with severe tricuspid regurgitation Echo reviewed with patient and family at bedside Continue with IV diuresis Low-salt diet Sleep study as outpatient She is going to follow-up with her primary highway maintainer at [facility] for further evaluation of her right heart failure I spent a total of [25] minutes coordinating, documenting, and providing care for this patient excluding time spent in the performance of separately billed s ervices or time spent by another provider. Date of Consultation December 25, 2023 Assessment & Plan (1) Hyponatremia: (2) Nausea without vomiting: (3) Acute right heart failure: (4) Chronic atrial fibrillation: (5) HTN, goal below 130/80: Plan Volume overload. Hypervolemic hyponatremia. Decreased oral intake noted over the last couple days. Sodium 124 mmol/L on presentation. Chronically prescribed hydrochlorothiazide. Acute decompensated right heart failure with high-dose calcium channel abhi and Lyrica likely contributing factors to volume overload. Discontinue hydrochlorothiazide Discontinue amlodipine Continue IV furosemide Supplement potassium orally Add spironolactone if OK with Nephrology Consider washing out LAURA inhibitor and transitioning to Entresto Continue guideline directed beta-abhi therapy with metoprolol succinate Strict I's and O's, daily weights on the same standing scale Resting echocardiography pending Recommend outpatient evaluation for sleep apnea and/or nocturnal hypoxemia. Atrial fibrillation. Chronic. Asymptomatic. Recommend rate control strategy with metoprolol succinate, continue chronic anticoagulation. Hypertension. See above. I spent a total of 55 minutes on the date of service in preparation, delivery, and documentation of the care provided to this patient excluding any time spent in the performance of separately billed services. This visit was a split-shared visit with the substantive portion of the medical decision making performed by the supervising highway maintainer/billing provider. History of Present Illness Reason for Consultation: Acute congestive heart failure Requesting Physician: Dr. Chambers Attending Physician: Dr. Ramos History of Present Illness Ms. Sierra Browne is a very pleasant 83-year-old female who is being seen at the request of Dr. Chambers. Reason for consultation is acute congestive heart failure. Patient lives in [place], [place], arriving to this area Tuesday to visit family - her son lives in this area, here for her granddaughters bridal shower. Patient has a history of chronic atrial fibrillation for which she is prescribed metoprolol succinate and Xarelto anticoagulation. Her highway maintainer in [place] recently moved and she established with a new provider , scheduled to see them again this upcoming . She has a history of hypertension for which she is prescribed benazepril hydrochlorothiazide 2024 and amlodipine at 10 mg/day. She notes having spinal stenosis and following with Pain Management, prescribed Lyrica in August 2023 Patient notes worsening shortness of breath, diffuse fluid retention, 20 pound weight gain over the past 2 weeks. She notes decreased appetite and nausea without vomiting over the last couple days. She denies chest pain. No palpitations. No orthopnea or PND to accompany the abdominal bloating and bilateral lower extremity peripheral edema. No dizziness or syncope. No current fevers or chills. No bleeding issues, denying hemoptysis, melena, hematochezia, or hematuria. Compliance with anticoagulation noted. Past Medical and Surgical History: Chronic atrial fibrillation, prescribed metoprolol succinate 200 mg/day and chronic rivaroxaban (Xarelto) anticoagulation Hypertension, prescribed benazepril hydrochlorothiazide 2024, amlodipine at 10 mg/day, metoprolol succinate 200 mg/day Rheumatic fever as a child Spinal stenosis Hysterectomy Appendectomy Knee replacement Eyelid surgery Social History: Alcohol: Glass of wine most nights. No tobacco. No illegal drug use. Lives in [place], [place]. 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 Family History: Father with colon cancer. Mother had severe osteoporosis. Two brothers and two sisters without cardiac issues Allergies Allergy/AdvReac Type Severity Reaction Status Date / Time pollen extracts Allergy Intermediate ITCHY Verified 12/24/23 17:48 EYES, SNEEZING, CONGESTION tree and shrub pollen Allergy Intermediate ITCHY Verified 12/24/23 17:48 EYES, SNEEZING, CONGESTION Sulfa (Sulfonamide Allergy Unknown HAPPENED Verified 12/24/23 17:48 Antibiotics) A SMALL CHILD Home Medications Medication Instructions Recorded Confirmed Type amlodipine 10 mg tablet 10 mg PO QPM 12/24/23 12/24/23 History benazepril 20 1 tab PO QAM 12/24/23 12/24/23 History mg-hydrochlorothiazide 25 mg tablet biotin 10 mg tablet 10 mg PO DAILY 12/24/23 12/24/23 History cholecalciferol (vitamin D3) 50 50 mcg PO DAILY 12/24/23 12/24/23 History mcg (2,000 unit) capsule (Vitamin D3) metoprolol succinate 200 mg 200 mg PO QAM 12/24/23 12/24/23 History tablet,extended release 24 hr pregabalin 100 mg capsule 100 mg PO HS 12/24/23 12/24/23 History pregabalin 75 mg capsule 75 mg PO BID 12/24/23 12/24/23 History rivaroxaban 20 mg tablet (Xarelto) 20 mg PO QPM 12/24/23 12/24/23 History Patient History Surgical History History of hysterectomy History of eyelid surgery Hx of appendectomy H/O total knee replacement Family History Other Heart disease Osteoporosis Social History Smoking Status: Never smoker Second Hand Exposure: No; Do You Dip or Chew Tobacco: No; Tobacco Cessation Education Requested by Patient: No Hx Alcohol Use: No Hx Substance Use: No Preferred Language: Citizen Of [place] Communication Ability: Effective Spout Worker Required: No Beliefs That Will Affect Care: None Current Living Situation: Alone Current Living Situation Comment: Lives at home alone, From [facility] Other Information That Helps Us Care for You: No Feels Safe at Home: Yes Safety Concerns: Feels Safe At This Time Assistive Devices: None Review of Systems Review of Systems: Complete Review of Systems is as stated above, negative, or noncontributory. Physical Exam Physical Exam: General: A&Ox3. Pleasant. Comfortable. Cooperative. Somewhat lethargic. HENT: Normocephalic. Atraumatic. Eyes: PER. Conjunctiva pink, sclera clear. Neck: JVD. Heart: Irregularly irregular at 80 bpm. Systolic murmur heard at the lower left sternal border. No diastolic murmur. No rub. Lungs: Clear to auscultation. Abdomen: +BS. Soft. Nontender. No masses or organomegaly. Extremities: 1-2+ edema. No clubbing. No cyanosis. Limited neurological examination is without focal deficits. Pulses: radial=2/4, posterior tibial=1/4. Results & Data Vital Signs (Past 12 Hours) Vital Signs Temp Pulse Resp BP Pulse Ox O2 Del Method 12/25/23 08:00 Room Air 12/25/23 07:40 36.8 C 92 H 18 129/83 93 Room Air 12/25/23 02:52 36.6 C 100 H 18 145/99 H 90 Room Air 12/24/23 22:50 Room Air 12/24/23 22:37 36.5 C 101 H 20 150/103 H 91 Room Air Laboratory Results Cardiac Enzymes 12/24/23 Range/Units 17:00 AST 32 (13-39) U/L Troponin I High Sens 8.8 (0-14) pg/ml B-Natriuretic Peptide 678 H (0-100) pg/ml Coagulation 12/24/23 Range/Units 17:00 B-Natriuretic Peptide 678 H (0-100) pg/ml Lipids 12/25/23 Range/Units 07:37 Triglycerides 54 (0-150) mg/dl Cholesterol 120 (0-200) mg/dl HDL Cholesterol 73 mg/dl Cholesterol/HDL Ratio 1.6 (0-5) CBC 12/24/23 12/25/23 Range/Units 17:00 07:37 WBC 7.45 6.62 (4.8-10.8) K/ul RBC 4.28 4.10 L (4.20-5.40) M/uL Hgb 12.2 11.6 L (12.0-16.0) g/dl Hct 35.6 L 33.8 L (37.0-47.0) % Plt Count 224 198 (130-400) K/uL Neut # (Auto) 5.32 (1.40-6.50) K/uL Lymph # (Auto) 1.36 (1.20-3.40) K/uL [place] # (Auto) 0.64 H (0.11-0.59) K/uL Eos # (Auto) 0.06 (0.00-0.50) K/uL Baso # (Auto) 0.05 (0.00-0.20) K/uL Comprehensive Metabolic Panel 12/24/23 12/24/23 12/25/23 Range/Units 17:00 20:31 07:37 Sodium 124 L 123 L 125 L (136-145) mmol/L Potassium 3.4 L 3.4 L 3.5 (3.5-5.1) mmol/L Chloride 87 L 87 L 88 L (98-107) mmol/L Carbon Dioxide 26 25 27 (21-32) mmol/L BUN 12 11 10 (6-23) mg/dl Creatinine 0.73 0.75 0.73 (0.6-1.2) mg/dl Glucose 115 H 129 H 89 (70-99(Fasting)) mg/dl Calcium 10.0 9.5 9.4 (8.6-10.3) mg/dl AST 32 (13-39) U/L ALT 14 (7-52) U/L Alkaline Phosphatase 183 H (34-104) U/L Total Protein 7.5 (6.0-8.3) gm/dl Albumin 4.8 (3.4-5.0) gm/dl Intake and Output 12/24/23 12/25/23 12/25/23 22:59 06:59 14:59 Intake Total 120 / 120 Balance 120 / 120 Intake: Oral 120 / 120 Other: Other Intake Source sips # Unmeasured Voids 1 1 Weight 74.253 kg 74.3 kg Weight Measurement Method Standing Scale Standing Scale Diagnostic Findings Chest x-ray was interpreted by the radiologist as revealing cardiomegaly with mild pulmonary vascular congestion. Telemetry: Atrial fibrillation initially with rapid ventricular response, currently rate controlled. No significant bradycardia.
[2023-12-25] MEDS: MAGNESIUM SULFATE / D5W 1 GM/100 ML BAG IV ONE (11:14)
[2023-12-25] MEDS: MAGNESIUM OXIDE 400 MG TAB PO SCH (11:14)
--- NOTE | 2023-12-25 15:12 | Nephrology Consultation ---
Date of Consultation December 25, 2023 Assessment & Plan (1) Hyponatremia: Hypervolemic Hyponatremia in the setting of Acute CHF. Also was on HCTZ at home. She is also barely eating any solid food but still drinking a good bit. No further workup needed. needs FFR 1500 ml per day and low salt diet. raise lasix to 40 iv bid, May need even higher dose. urine should look very dilute to know that the dose if effective. Check I and O. NO HCTZ ever again. She will need loop diuretics at discharge. Higher protein diet. may need protein Supplement Would not use Aldactone quite yet. Avoid Lyrica and Amlodipine for now as they make edema worse. (2) Acute right heart failure: She will need loop diuretics at discharge. Would not use Aldactone quite yet. Avoid Lyrica and Amlodipine for now as they make edema worse. History of Present Illness Reason for Consultation: Hyponatremia Attending Physician: Leif Ramos MD History of Present Illness 83/F with HTN, atrial fibrillation on Xarelto, spinal stenosis and other medical problems listed below who presented to ED with worsening swelling of lower extremities x 2 days. Patient lives in [place] but is in town for a [employer] shower and has developed SOB and had 12 pound weight gain in the past week. Recent medication change of increased Lyrica dose for worsening radicular pain from spinal stenosis. Follows with cardiology at [facility] in [place]. Noted to have Low na of 123. She does take HCTZ at home. CXR shows Pulm congestion and has got one dose of lasix 40 iv. Denies history of hyponatremia, CHF. No F/C, headache, lightheadedness, CP, N/V, abd pain, dysuria, diarrhea or constipation. ROS--See HPI. otherwise 12 systems reviewed and negative Physical Exam Physical Exam: General: A&Ox3. Pleasant. Comfortable. Cooperative. Somewhat lethargic. HENT: Normocephalic. Atraumatic. Eyes: PER. Conjunctiva pink, sclera clear. Neck: JVD. Heart: Irregularly irregular at 80 bpm. Systolic murmur heard at the lower left sternal border. No diastolic murmur. No rub. Lungs: Clear to auscultation. Abdomen: +BS. Soft. Nontender. No masses or organomegaly. Extremities: 1-2+ edema. Allergies Allergy/AdvReac Type Severity Reaction Status Date / Time pollen extracts Allergy Intermediate ITCHY Verified 12/24/23 17:48 EYES, SNEEZING, CONGESTION tree and shrub pollen Allergy Intermediate ITCHY Verified 12/24/23 17:48 EYES, SNEEZING, CONGESTION Sulfa (Sulfonamide Allergy Unknown HAPPENED Verified 12/24/23 17:48 Antibiotics) A SMALL CHILD Home Medications Medication Instructions Recorded Confirmed Type amlodipine 10 mg tablet 10 mg PO QPM 12/24/23 12/24/23 History benazepril 20 1 tab PO QAM 12/24/23 12/24/23 History mg-hydrochlorothiazide 25 mg tablet biotin 10 mg tablet 10 mg PO DAILY 12/24/23 12/24/23 History cholecalciferol (vitamin D3) 50 50 mcg PO DAILY 12/24/23 12/24/23 History mcg (2,000 unit) capsule (Vitamin D3) metoprolol succinate 200 mg 200 mg PO QAM 12/24/23 12/24/23 History tablet,extended release 24 hr pregabalin 100 mg capsule 100 mg PO HS 12/24/23 12/24/23 History pregabalin 75 mg capsule 75 mg PO BID 12/24/23 12/24/23 History rivaroxaban 20 mg tablet (Xarelto) 20 mg PO QPM 12/24/23 12/24/23 History Patient History Surgical History History of hysterectomy History of eyelid surgery Hx of appendectomy H/O total knee replacement Family History Other Heart disease Osteoporosis Social History Smoking Status: Never smoker Second Hand Exposure: No; Do You Dip or Chew Tobacco: No; Tobacco Cessation Education Requested by Patient: No Hx Alcohol Use: No Hx Substance Use: No Preferred Language: Swedish Communication Ability: Effective Canary Breeder Required: No Beliefs That Will Affect Care: None Current Living Situation: Alone Current Living Situation Comment: Lives at home alone, From [facility] Other Information That Helps Us Care for You: No Feels Safe at Home: Yes Safety Concerns: Feels Safe At This Time Assistive Devices: None Results & Data Vital Signs (Past 12 Hours) Vital Signs Temp Pulse Resp BP Pulse Ox O2 Del Method 12/25/23 11:34 36.5 C 97 H 18 120/74 91 Room Air 12/25/23 08:00 Room Air 12/25/23 07:40 36.8 C 92 H 18 129/83 93 Room Air Laboratory Results reviewed Diagnostic Findings CXr--shows CHF
[2023-12-26] MEDS: MAGNESIUM SULFATE / D5W 1 GM/100 ML BAG IV ONE (01:59)
[2023-12-26 06:22] LABS: Hematocrit (blood only) 35.7 % (37.0-47.0); Hemoglobin 12.1 g/dl (12.0-16.0); Mean Corpuscular Hemoglobin 28.3 pg (25.0-34.0); Mean Corpuscular Hgb Conc 33.9 g/dL (32.0-36.0); Mean Corpuscular Volume 83.6 fL (80.0-100.0); Mean Platelet Volume 9.2 fL (9.4-12.4); Platelet Count 173 K/uL (130-400); RDW Coefficient of Variation 12.9 % (11.5-14.5); RDW Standard Deviation 39.1 fL (36.4-46.3); Red Blood Count 4.27 M/uL (4.20-5.40); White Blood Count 5.94 K/ul (4.8-10.8)
[2023-12-26 06:29] LABS: BUN Creatinine Ratio 10.8 (10-20); Calcium 9.2 mg/dl (8.6-10.3); Creatinine Clr Calc Pharmacy 51.5 ml/min; Est GFR (African American) 85.6 ml/min; Est GFR (Non-African American) 73.9 ml/min; Magnesium 2.1 mg/dl (1.7-2.4); Phosphorus 2.7 mg/dl (2.5-4.9); Potassium 3.4 mmol/L (3.5-5.1)
[2023-12-26] MEDS: POTASSIUM CHLORIDE CRTAB 20 MEQ TABCR PO STA (07:40)
[2023-12-26 08:06] LABS: Estimated Average Glucose 111 mg/dl; Hemoglobin A1C 5.5 % (4.5-5.6)
--- NOTE | 2023-12-26 09:45 | Hospitalist Progress Note ---
Date of Service December 26, 2023 Assessment & Plan (1) Swelling of both lower extremities: (2) SOB (shortness of breath): Plan: This is an 83yo F with a PMH of HTN, atrial fibrillation on Xarelto, spinal stenosis and other medical problems listed below who presents with worsening swelling of lower extremities x 2 days. BLE edema and 12 lbs weight gain over the past week BNP 678, HS troponin WNL CXR with Cardiomegaly with mild pulmonary vascular congestion No known h/o CHF Lives in [place] (in town for a family event), follows with cardiology at [facility] in [place] Given 40mg IV lasix in ED -> cont. w/60 iv lasix bid - (nephrology managing) Strict I&Os, daily weights, low sodium diet Echo -LVEF 55 to 60%. RV is moderately dilated. RV systolic function is mild to moderately reduced. There is severe tricuspid regurg. RV systolic pressure is elevated at 40 to 50 mmHg. Cardiology consulted, and following - cont. IV lasix as above. Stop amlodipine, lyrica, also stop HCTZ (given hyponatremia) TSH 4.5 A1c 5.5% (3) Atrial fibrillation: Plan: Continue Toprol, Xarelto for stroke ppx (4) HTN (hypertension): Plan: Holding amlodipine with BLE edema, holding hctz (d/t hyponatremia) - added lisinopril while admitted, continue Toprol as above (5) Spinal stenosis: Plan: Worsening lower left sided back pain with radiation down leg - has evaluation with spinal surgery at [facility] next week Holding lyrica as it's possibly contributing to BLE edema Scheduled Tylenol, PRN oxy for moderate pain and PRN dilaudid for severe pain DVT Ppx: Xarelto Code status:DNR PCP: Lives in [place] Dispo: PCU Admission and Anticipated Discharge Date Admission Date: December 24, 2023 Subjective Pt seen in follow up of LE edema, shortness of breath -> right heart failure cardiology and nephrology consulted Pt is sitting up in bed in [facility], family present at the bedside Currently denies any shortness of breath, feels LE edema is improved, on IV lasix No fever, chills, chest pain, palpitations, abd. pain Reportedly, she has a long standing hx of Afib on xarelto Review of Systems Review of Systems: All systems reviewed & are unremarkable except as noted in Subjective Physical Exam Physical Exam: GENERAL APPEARANCE: AxOx4, generally well-appearing female no acute distress. HEENT: NC, AT. MMM. EOMI NECK: Supple HEART: irregularly irregular, HR in 70s LUNGS: CTAB, moving air well. No crackles or wheezes are heard. ABDOMEN: nontender, nondistended, +bowel sounds heard. BACK: No CVAT, no obvious deformity. EXTREMITIES: BLE 1+ edema (improved), moves extremities NEUROLOGICAL: Alert and oriented, answers appropriately, speech fluent, moving extremities. Skin: Warm and dry Results & Data Results & Data Vital Signs (Past 12 Hours) Vital Signs Temp Pulse Pulse Resp BP Pulse Ox O2 Del Method 12/26/23 08:07 81 12/26/23 07:43 36.9 C 91 H 17 136/89 93 Room Air 12/26/23 03:37 36.5 C 99 H 16 144/88 H 94 Room Air 12/26/23 00:00 98 H 12/25/23 23:41 36.9 C 97 H 20 148/97 H 93 Room Air Laboratory Results 12/26/23 12/25/23 Range/Units 05:43 07:37 WBC 5.94 (4.8-10.8) K/ul RBC 4.27 (4.20-5.40) M/uL Hgb 12.1 (12.0-16.0) g/dl Hct 35.7 L (37.0-47.0) % MCV 83.6 (80.0-100.0) fL MCH 28.3 (25.0-34.0) pg MCHC 33.9 (32.0-36.0) g/dL RDW Std Deviation 39.1 (36.4-46.3) fL RDW Coeff of Lance 12.9 (11.5-14.5) % Plt Count 173 (130-400) K/uL MPV 9.2 L (9.4-12.4) fL Sodium 126 L (136-145) mmol/L Potassium 3.4 L (3.5-5.1) mmol/L Chloride 88 L (98-107) mmol/L Carbon Dioxide 29 (21-32) mmol/L Anion Gap 9 (3-11) BUN 8 (6-23) mg/dl Creatinine 0.74 (0.6-1.2) mg/dl Est Cr Clr Drug Dosing 51.5 ml/min Est GFR ( Amer) 85.6 ml/min Est GFR (Non-Af Amer) 73.9 ml/min BUN/Creatinine Ratio 10.8 (10-20) Glucose 106 H (70-99(Fasting)) mg/dl Estimat Average Glucose 111 mg/dl Hemoglobin A1c 5.5 (4.5-5.6) % Calcium 9.2 (8.6-10.3) mg/dl Phosphorus 2.7 (2.5-4.9) mg/dl Magnesium 2.1 (1.7-2.4) mg/dl Medications Administered Current Inpatient Medications Acetaminophen (Acetaminophen 500 Mg Tab) 1,000 mg PO Q8H [facility] Stop: 01/23/24 21:59 Last Admin: 12/26/23 05:49 Dose: 1,000 mg Furosemide (Furosemide 40 Mg/4 Ml Vial) 40 mg IV BIDM [facility] Stop: 01/24/24 15:14 Last Admin: 12/26/23 08:19 Dose: 40 mg Hydromorphone HCl (Hydromorphone Inj 0.5 Mg/0.5 Ml Syr) 0.5 mg IV Q6H PRN PRN Reason: Severe Pain (Scale 7, 8, 9,10) Stop: 01/07/24 19:02 Lisinopril (Lisinopril 10 Mg Tab) 10 mg PO [facility] Stop: 01/24/24 08:59 Last Admin: 12/26/23 08:19 Dose: 10 mg Magnesium Oxide (Magnesium Oxide 400 Mg Tab) 400 mg PO BID [facility] Stop: 01/24/24 10:14 Last Admin: 12/26/23 08:19 Dose: 400 mg Metoprolol Succinate (Metoprolol Succ 50mg Ext Rel Tab) 200 mg PO [facility] Stop: 01/24/24 08:59 Last Admin: 12/26/23 08:19 Dose: 200 mg Metoprolol Tartrate (Metoprolol Tartrate 1 Mg/Ml Vial) 5 mg IV Q5M PRN PRN Reason: Tachycardia Stop: 01/23/24 18:02 Last Admin: 12/24/23 18:15 Dose: 5 mg Oxycodone HCl (Oxycodone Hcl Ir 5 Mg Tab (Immediate Release)) 5 mg PO Q6H PRN PRN Reason: Moderate Pain (Scale 4, 5, 6) Stop: 01/07/24 19:02 Last Admin: 12/26/23 03:35 Dose: 5 mg Potassium Chloride (Potassium Chloride Crtab 20 Meq Tabcr) 40 meq PO QAM [facility] Stop: 01/24/24 08:59 Last Admin: 12/26/23 08:18 Dose: 40 meq Rivaroxaban (Rivaroxaban 20 Mg Tab) 20 mg PO QDD [facility] Stop: 01/23/24 21:59 Last Admin: 12/25/23 15:53 Dose: 20 mg Vitamin D (Cholecalciferol 25 Mcg (1000 Units) Tab) 50 mcg PO DAILY [facility] Stop: 01/24/24 08:59 Last Admin: 12/26/23 08:19 Dose: 50 mcg
--- NOTE | 2023-12-26 13:05 | Cardiology Progress Note ---
Date of Service December 26, 2023 Assessment & Plan (1) Hyponatremia: (2) Nausea without vomiting: (3) Acute right heart failure: (4) Chronic atrial fibrillation: (5) HTN, goal below 130/80: Plan Volume overload. Hypervolemic hyponatremia. Decreased oral intake noted over the last couple days. Sodium 124 mmol/L on presentation. Chronically prescribed hydrochlorothiazide. Acute decompensated right heart failure with high-dose calcium channel abhi and Lyrica likely contributing factors to volume overload. Discontinue hydrochlorothiazide Discontinue amlodipine Continue IV furosemide Supplement potassium orally Add spironolactone if OK with Nephrology Consider washing out LAURA inhibitor and transitioning to Entresto Continue guideline directed beta-abhi therapy with metoprolol succinate Strict I's and O's, daily weights on the same standing scale Resting echocardiography pending Recommend outpatient evaluation for sleep apnea and/or nocturnal hypoxemia. Atrial fibrillation. Chronic. Asymptomatic. Recommend rate control strategy with metoprolol succinate, continue chronic anticoagulation. Hypertension. See above. 12/26/2023: Patient demonstrates improvement in volume status, but remains with mild volume overload. Echocardiogram obtained yesterday demonstrates normal LVEF 55-60. right ventricle mildly dilated, Severe TR. RV systolic pressure 40-50mmHg. No prior echo for comparison. Patient follows with [facility] cardiology, Dr. Johnson. (office number [phone]) and will plan for close follow up when appropriate for discharge. Continue with IV furosemide 40mg IV BID today, continue potassium supplementation. Also continue Toprol xl and Lisinopril as part of HF regimen. Maintain goal serum K > 4 and serum mag > 2.0. Strict I and O and daily weights. Continue Xartelto as per current regimen s/t A-fib. Also agree with plan for patient to have a sleep apnea work up at time of discharge. Case has been discussed with Dr. Elizondo. Further recommendations regarding plan of care as per his assessment. I spent a total of 30 minutes on the date of service in preparation, delivery, documentation of the care provided to the patient excluding any time spent in the performance of separately billed services. RAINE Lock [facility] Admission and Anticipated Discharge Date Admission Date: December 24, 2023 Supervising Physician Co-Signing Physician Notes I have personally performed a history and physical examination on the patient. I have reviewed the advance practitioner's documentation, and I agree with, and take responsibility for the plan of care. 83-year-old female with acute right heart failure and hyponatremia. volume status improving with IV diuresis. Edema subjectively improved. Denies orthopnea or PND. Telemetry reveals atrial fibrillation 70s to 90s. Hyponatremia minimally improved today. Stable renal function and mild hypokalemia noted. Continue IV diuresis. Maintain negative fluid balance. Follow daily weight, I's and O's, GFR, and electrolytes. Add Aldactone 12.5 mg daily. Amlodipine discontinued secondary to edema. Results of echocardiogram demonstrating right ventricular enlargement and severe tricuspid regurgitation reviewed with both the patient and granddaughter at bedside. All questions answered to their satisfaction. I spent a total of 30 minutes on the date of service in preparation, delivery, and documentation of the care provided to this patient, excluding any time spent in the performance of separately billed services. Subjective 12/26/2023: Patient seen and examined in follow up today. Feeling well overall. Denies any new cardiac concerns. She is resting comfortably in bed with son visiting at bedside. Labs, vitals, diagnostics, telemetry and documentation reviewed. Telemetry reviewed showing A-fib with PVC 80-90's. There is notation of a few 3 to 4 beat runs of VT. Review of Systems Review of Systems: All systems reviewed & are unremarkable except as noted in HPI & below Physical Exam Constitutional: well developed and well nourished; no acute distress and not ill appearing Neck: normal visual inspection and trachea midline Respiratory: normal respiratory effort, lungs clear to auscultation no cough Auscultation: no crackles, no rales, no rhonchi and no wheezes Cardiovascular: Rate/Rhythm: + irregularly irregular Heart Sounds: normal S1 and normal S2; no murmur Vessels: no JVD Extremities: + edema (Trace BLE) Skin: no rashes, warm and dry Psychiatric: A+Ox3, euthymic affect Results & Data Vital Signs (Past 12 Hours) Vital Signs Temp Pulse Pulse Resp BP Pulse Ox O2 Del Method 12/26/23 10:55 36.6 C 91 H 20 142/79 H 95 Room Air 12/26/23 08:07 81 12/26/23 08:00 Room Air 12/26/23 07:43 36.9 C 91 H 17 136/89 93 Room Air 12/26/23 03:37 36.5 C 99 H 16 144/88 H 94 Room Air Laboratory Results CBC 12/26/23 Range/Units 05:43 WBC 5.94 (4.8-10.8) K/ul RBC 4.27 (4.20-5.40) M/uL Hgb 12.1 (12.0-16.0) g/dl Hct 35.7 L (37.0-47.0) % Plt Count 173 (130-400) K/uL Comprehensive Metabolic Panel 12/26/23 Range/Units 05:43 Sodium 126 L (136-145) mmol/L Potassium 3.4 L (3.5-5.1) mmol/L Chloride 88 L (98-107) mmol/L Carbon Dioxide 29 (21-32) mmol/L BUN 8 (6-23) mg/dl Creatinine 0.74 (0.6-1.2) mg/dl Glucose 106 H (70-99(Fasting)) mg/dl Calcium 9.2 (8.6-10.3) mg/dl Intake and Output 12/25/23 12/26/23 12/26/23 22:59 06:59 14:59 Intake Total 250 / 475 Output Total 450 / 1000 400 / 1000 Balance -450 / -525 -150 / -525 Intake: IV 100 / 200 Magnesium Sulfate / D5w 1 gm In 100 / 100 100 ml @ 50 mls/hr IV ONE ONE Rx#:[id number] Oral 150 / 275 Output: Urine 450 / 1000 400 / 1000 Other: Other Intake Source SIPS Weight 71.6 kg Weight Measurement Method Built in [facility]
--- NOTE | 2023-12-26 13:58 | Nephrology Progress Note ---
Date of Service December 26, 2023 Assessment & Plan Admission and Anticipated Discharge Date Admission Date: December 24, 2023 Subjective Assessment & Plan (1) Hyponatremia: Hypervolemic Hyponatremia in the setting of Acute CHF. Also was on HCTZ at home. She is also barely eating any solid food but still drinking a good bit. No further workup needed. needs FFR 1500 ml per day and low salt diet. raise lasix to 60 iv bid. urine should look very dilute to know that the dose if effective. raise kcl to 40 bid. Check urine osm today at 7 PM ( about 2 hrs after lasix dose) Check I and O. NO HCTZ ever again. She will need loop diuretics at discharge. Higher protein diet. may need protein Supplement. her protein intake is very very low so will be hard to raise na enough Would not use Aldactone quite yet but can be used eventually Avoid Lyrica and Amlodipine for now as they make edema worse. (2) Acute right heart failure: She will need loop diuretics at discharge. Would not use Aldactone quite yet. Avoid Lyrica and Amlodipine for now as they make edema worse. S--urine output Does not seem to be as brisk as desired. No new issues Physical Exam Physical Exam: General: A&Ox3. Pleasant. Comfortable. Cooperative. Somewhat lethargic. HENT: Normocephalic. Atraumatic. Eyes: PER. Conjunctiva pink, sclera clear. Neck: JVD. Heart: Irregularly irregular at 80 bpm. Systolic murmur heard at the lower left sternal border. No diastolic murmur. No rub. Lungs: Clear to auscultation. Abdomen: +BS. Soft. Nontender. No masses or organomegaly. Extremities: 1-2+ edema. Results & Data Vital Signs (Past 12 Hours) Vital Signs Temp Pulse Pulse Resp BP Pulse Ox O2 Del Method 12/26/23 10:55 36.6 C 91 H 20 142/79 H 95 Room Air 12/26/23 08:07 81 12/26/23 08:00 Room Air 12/26/23 07:43 36.9 C 91 H 17 136/89 93 Room Air 12/26/23 03:37 36.5 C 99 H 16 144/88 H 94 Room Air
[2023-12-26] MEDS: SPIRONOLACTONE 12.5 MG TAB PO SCH (15:44)
[2023-12-26] MEDS: FUROSEMIDE 40 MG/4 ML VIAL IV SCH (17:56)
[2023-12-26] MEDS: POTASSIUM CHLORIDE CRTAB 20 MEQ TABCR PO SCH (21:51)
[2023-12-26] MEDS: UREA (UREA-NA) 15 GM PACK PO SCH (21:52)
[2023-12-27 06:33] LABS: Hematocrit (blood only) 36.7 % (37.0-47.0); Hemoglobin 12.4 g/dl (12.0-16.0); Mean Corpuscular Hemoglobin 28.1 pg (25.0-34.0); Mean Corpuscular Hgb Conc 33.8 g/dL (32.0-36.0); Mean Corpuscular Volume 83.2 fL (80.0-100.0); Mean Platelet Volume 9.6 fL (9.4-12.4); Platelet Count 208 K/uL (130-400); RDW Coefficient of Variation 12.9 % (11.5-14.5); RDW Standard Deviation 39.3 fL (36.4-46.3); Red Blood Count 4.41 M/uL (4.20-5.40); White Blood Count 7.11 K/ul (4.8-10.8)
[2023-12-27 06:49] LABS: BUN Creatinine Ratio 25.9 (10-20); Calcium 9.8 mg/dl (8.6-10.3); Creatinine Clr Calc Pharmacy 46.1 ml/min; Est GFR (African American) 76.8 ml/min; Est GFR (Non-African American) 66.2 ml/min; Phosphorus 2.5 mg/dl (2.5-4.9); Potassium 4.4 mmol/L (3.5-5.1)
--- NOTE | 2023-12-27 08:58 | Hospitalist Progress Note ---
Date of Service December 27, 2023 Assessment & Plan (1) Swelling of both lower extremities: (2) SOB (shortness of breath): Plan: Right heart failure Hyponatremia This is an 83yo F with a PMH of HTN, atrial fibrillation on Xarelto, spinal stenosis and other medical problems listed below who presents with worsening swelling of lower extremities x 2 days. BLE edema and 12 lbs weight gain over the past week BNP 678, HS troponin WNL CXR with Cardiomegaly with mild pulmonary vascular congestion No known h/o CHF Lives in [place] (in town for a family event), follows with cardiology at [facility] in [place] Given 40mg IV lasix in ED -> cont. w/60 iv lasix bid - (nephrology managing) Strict I&Os, daily weights, low sodium diet Echo -LVEF 55 to 60%. RV is moderately dilated. RV systolic function is mild to moderately reduced. There is severe tricuspid regurg. RV systolic pressure is elevated at 40 to 50 mmHg. Cardiology consulted, and following - cont. IV lasix as above. Stopped amlodipine, lyrica, also stopped HCTZ (given hyponatremia) TSH 4.5 A1c 5.5% Hyponatremia - cont. IV lasix - supplement K - started on urea by nephrology - nephrology consulted and closely following (3) Atrial fibrillation: Plan: Continue Toprol, Xarelto for stroke ppx (4) HTN (hypertension): Plan: Holding amlodipine with BLE edema, holding hctz (d/t hyponatremia) - added lisinopril while admitted, continue Toprol as above - cont. to monitor (5) Spinal stenosis: Plan: Worsening lower left sided back pain with radiation down leg - has evaluation with spinal surgery at [facility] next week Holding lyrica as it's possibly contributing to BLE edema Scheduled Tylenol, PRN oxy for moderate pain and PRN dilaudid for severe pain DVT Ppx: Xarelto Code status:DNR PCP: Lives in [place] Dispo: PCU Admission and Anticipated Discharge Date Admission Date: December 24, 2023 Subjective Pt seen in follow up of LE edema, shortness of breath -> right heart failure, and hyponatremia cardiology and nephrology consulted Pt is sitting up in bed in NAD, says she had a fairly good night, was able to get some sleep Currently denies any shortness of breath, feels LE edema is improved, on IV lasix No fever, chills, chest pain, palpitations, abd. pain Reportedly, she has a long standing hx of Afib on xarelto Review of Systems Review of Systems: All systems reviewed & are unremarkable except as noted in Subjective Physical Exam Physical Exam: GENERAL APPEARANCE: AxOx4, generally well-appearing female no acute distress. HEENT: NC, AT. MMM. EOMI NECK: Supple HEART: irregularly irregular LUNGS: CTAB, moving air well. No crackles or wheezes are heard. ABDOMEN: nontender, nondistended, +bowel sounds heard. BACK: No CVAT, no obvious deformity. EXTREMITIES: BLE 1+ edema (improved), moves extremities NEUROLOGICAL: Alert and oriented, answers appropriately, speech fluent, moving extremities. Skin: Warm and dry Results & Data Results & Data Vital Signs (Past 12 Hours) Vital Signs Temp Pulse Pulse Resp BP Pulse Ox O2 Del Method 12/27/23 07:47 37.0 C 89 19 156/94 H 93 Room Air 12/27/23 07:44 101 H 12/27/23 02:30 36.6 C 98 H 16 141/78 H 94 Room Air 12/27/23 00:00 96 H 12/26/23 23:19 36.5 C 94 H 18 130/72 95 Room Air Laboratory Results 12/27/23 12/26/23 Range/Units 05:49 Unknown WBC 7.11 (4.8-10.8) K/ul RBC 4.41 (4.20-5.40) M/uL Hgb 12.4 (12.0-16.0) g/dl Hct 36.7 L (37.0-47.0) % MCV 83.2 (80.0-100.0) fL MCH 28.1 (25.0-34.0) pg MCHC 33.8 (32.0-36.0) g/dL RDW Std Deviation 39.3 (36.4-46.3) fL RDW Coeff of Lance 12.9 (11.5-14.5) % Plt Count 208 (130-400) K/uL MPV 9.6 (9.4-12.4) fL Sodium 129 L (136-145) mmol/L Potassium 4.4 D (3.5-5.1) mmol/L Chloride 91 L (98-107) mmol/L Carbon Dioxide 29 (21-32) mmol/L Anion Gap 9 (3-11) BUN 21 (6-23) mg/dl Creatinine 0.81 (0.6-1.2) mg/dl Est Cr Clr Drug Dosing 46.1 ml/min Est GFR ( Amer) 76.8 ml/min Est GFR (Non-Af Amer) 66.2 ml/min BUN/Creatinine Ratio 25.9 H (10-20) Glucose 89 (70-99(Fasting)) mg/dl Calcium 9.8 (8.6-10.3) mg/dl Phosphorus 2.5 (2.5-4.9) mg/dl Magnesium 2.0 (1.7-2.4) mg/dl Urine Osmolality 191 L (500-800) mOsm/kg Medications Administered Current Inpatient Medications Acetaminophen (Acetaminophen 500 Mg Tab) 1,000 mg PO Q8H [facility] Stop: 01/23/24 21:59 Last Admin: 12/27/23 05:47 Dose: 1,000 mg Furosemide (Furosemide 40 Mg/4 Ml Vial) 60 mg IV BIDM [facility] Stop: 01/25/24 16:59 Last Admin: 12/27/23 08:30 Dose: 60 mg Hydromorphone HCl (Hydromorphone Inj 0.5 Mg/0.5 Ml Syr) 0.5 mg IV Q6H PRN PRN Reason: Severe Pain (Scale 7, 8, 9,10) Stop: 01/07/24 19:02 Lisinopril ([facility] 10 Mg Tab) [facility] [place] Stop: 01/24/24 08:59 Last Admin: 12/27/23 08:30 Dose: 10 mg Magnesium Oxide (Magnesium Oxide 400 Mg Tab) 400 mg PO BID [facility] Stop: 01/24/24 10:14 Last Admin: 12/27/23 08:29 Dose: 400 mg Metoprolol Succinate (Metoprolol Succ 50mg Ext Rel Tab) 200 mg PO QAM [facility] Stop: 01/24/24 08:59 Last Admin: 12/27/23 08:31 Dose: 200 mg Metoprolol Tartrate (Metoprolol Tartrate 1 Mg/Ml Vial) 5 mg IV Q5M PRN PRN Reason: Tachycardia Stop: 01/23/24 18:02 Last Admin: 12/24/23 18:15 Dose: 5 mg Oxycodone HCl (Oxycodone Hcl Ir 5 Mg Tab (Immediate Release)) 5 mg PO Q6H PRN PRN Reason: Moderate Pain (Scale 4, 5, 6) Stop: 01/07/24 19:02 Last Admin: 12/27/23 00:41 Dose: 5 mg Potassium Chloride (Potassium Chloride Crtab 20 Meq Tabcr) 40 meq PO BID [facility] Stop: 01/25/24 20:59 Last Admin: 12/27/23 08:29 Dose: 40 meq Rivaroxaban (Rivaroxaban 20 Mg Tab) 20 mg PO QDD [facility] Stop: 01/23/24 21:59 Last Admin: 12/26/23 15:44 Dose: 20 mg Spironolactone (Spironolactone 12.5 Mg Tab) 12.5 mg PO DAILY [facility] Stop: 01/25/24 14:59 Last Admin: 12/27/23 08:30 Dose: 12.5 mg Urea (Urea (Urea-Na) 15 Gm Pack) 15 gm PO BID [facility] Stop: 01/25/24 20:59 Last Admin: 12/27/23 08:29 Dose: 15 gm Vitamin D (Cholecalciferol 25 Mcg (1000 Units) Tab) 50 mcg PO DAILY [facility] Stop: 01/24/24 08:59 Last Admin: 12/27/23 08:30 Dose: 50 mcg
--- NOTE | 2023-12-27 13:32 | Cardiology Progress Note ---
Date of Service December 27, 2023 Assessment & Plan (1) Acute right heart failure: (2) Hyponatremia: (3) Chronic atrial fibrillation: (4) HTN, goal below 130/80: Plan 83-year-old female with acute right-sided heart failure, hypervolemic hyponatremia. High-dose calcium channel abhi therapy and Lyrica likely contributing factors to volume overload. Hydrochlorothiazide discontinued on admission. Volume status and hyponatremia improving. Continue IV diuresis. Furosemide increased to 60 mg twice daily by nephrology yesterday 12/26/2023. Low-dose Aldactone added 12/26/2023. Outpatient evaluation for sleep apnea/nocturnal hypoxemia. Chronic atrial fibrillation with fair rate control noted. Continue metoprolol and chronic anticoagulation with Xarelto. I spent a total of 35 minutes on the date of service in preparation, delivery, and documentation of the care provided to this patient, excluding any time spent in the performance of separately billed services. Admission and Anticipated Discharge Date Admission Date: December 24, 2023 Subjective Patient seen examined the bedside. Edema improving. Fluid balance -910 cc. Renal function within normal range. Serum sodium trending upward slightly, from 126 up to 129 today. Son present at bedside. He has a copy of most recent echocardiogram performed April 2023 demonstrating right ventricular dilatation, and severe tricuspid regurgitation. Review of Systems Review of Systems: All systems reviewed & are unremarkable except as noted in Subjective Physical Exam Constitutional: well nourished; no acute distress Respiratory: no respiratory distress, no labored breathing and no retractions Auscultation: no crackles, no rales, no rhonchi and no wheezes Cardiovascular: Rate/Rhythm: + irregularly irregular Heart Sounds: normal S1, normal S2 and + murmur (1/6 midsystolic murmur heard best at the left sternal border) Vessels: + JVD and radial pulses present Gastrointestinal (Abdomen): Inspection/Auscultation: abdomen normal to inspection and normal bowel sounds; abdomen not distended Percussion/Palpation: abdomen soft; abdomen nontender, no guarding and abdomen not rigid Neurologic: CN's II-XI intact bilaterally and moves all extremities; no focal motor deficits Results & Data Vital Signs (Past 12 Hours) Vital Signs Temp Pulse Pulse Resp BP Pulse Ox O2 Del Method 12/27/23 11:35 36.6 C 98 H 19 155/94 H 96 Room Air 06/11/24 07:47 37.0 C 89 19 156/94 H 93 Room Air 12/27/23 07:44 101 H 12/27/23 02:30 36.6 C 98 H 16 141/78 H 94 Room Air Laboratory Results CBC 12/27/23 Range/Units 05:49 WBC 7.11 (4.8-10.8) K/ul RBC 4.41 (4.20-5.40) M/uL Hgb 12.4 (12.0-16.0) g/dl Hct 36.7 L (37.0-47.0) % Plt Count 208 (130-400) K/uL Comprehensive Metabolic Panel 12/27/23 Range/Units 05:49 Sodium 129 L (136-145) mmol/L Potassium 4.4 D (3.5-5.1) mmol/L Chloride 91 L (98-107) mmol/L Carbon Dioxide 29 (21-32) mmol/L BUN 21 (6-23) mg/dl Creatinine 0.81 (0.6-1.2) mg/dl Glucose 89 (70-99(Fasting)) mg/dl Calcium 9.8 (8.6-10.3) mg/dl Intake and Output 12/26/23 12/27/23 12/27/23 22:59 06:59 14:59 Intake Total 300 / 740 Output Total 1300 / 1300 350 / 350 Balance -1000 / -560 -350 / -350 Intake: Oral 300 / 740 Output: Urine 1300 / 1300 350 / 350 Other: # Unmeasured Voids 2 Weight 68.6 kg Weight Measurement Method Standing Scale
--- NOTE | 2023-12-27 13:57 | Nephrology Progress Note ---
Date of Service December 27, 2023 Assessment & Plan Admission and Anticipated Discharge Date Admission Date: December 24, 2023 Subjective Assessment & Plan (1) Hyponatremia: Hypervolemic Hyponatremia in the setting of Acute CHF. Also was on HCTZ at home. She is also barely eating any solid food but still drinking a good bit. No further workup needed. needs FFR 1500 ml per day and low salt diet. Continue lasix 60 iv bid at least today. Will then switch to PO torsemide 40 bid. Lower kcl to 20 bid since Aldactone also added Did Check urine osm about 2 hrs after lasix dose--did go down to 191 so this is effective dose Check I and O. NO HCTZ ever again. She will need loop diuretics at discharge. Higher protein diet. may need protein Supplement. her protein intake is very very low so will be hard to raise na enough Would not use Aldactone quite yet but can be used eventually Avoid Lyrica and Amlodipine for now as they make edema worse. (2) Acute right heart failure: She will need loop diuretics at discharge. Avoid Lyrica and Amlodipine for now as they make edema worse. S--urine output did go up and edema is less. No new issues Physical Exam Physical Exam: General: A&Ox3. Pleasant. Comfortable. Cooperative. Somewhat lethargic. HENT: Normocephalic. Atraumatic. Eyes: PER. Conjunctiva pink, sclera clear. Neck: JVD. Heart: Irregularly irregular at 80 bpm. Systolic murmur heard at the lower left sternal border. No diastolic murmur. No rub. Lungs: Clear to auscultation. Abdomen: +BS. Soft. Nontender. No masses or organomegaly. Extremities: Trace edema. Results & Data Vital Signs (Past 12 Hours) Vital Signs Temp Pulse Pulse Resp BP Pulse Ox O2 Del Method 12/27/23 11:35 36.6 C 98 H 19 155/94 H 96 Room Air 12/27/23 07:47 37.0 C 89 19 156/94 H 93 Room Air 12/27/23 07:44 101 H 12/27/23 02:30 36.6 C 98 H 16 141/78 H 94 Room Air
[2023-12-27] MEDS: POTASSIUM CHLORIDE CRTAB 20 MEQ TABCR PO SCH (21:06)
[2023-12-28 06:25] LABS: BUN Creatinine Ratio 36.7 (10-20); Calcium 9.6 mg/dl (8.6-10.3); Creatinine Clr Calc Pharmacy 41.5 ml/min; Est GFR (African American) 67.6 ml/min; Est GFR (Non-African American) 58.3 ml/min; Magnesium 2.1 mg/dl (1.7-2.4); Phosphorus 2.8 mg/dl (2.5-4.9); Potassium 3.7 mmol/L (3.5-5.1)
[2023-12-28 06:32] LABS: Hematocrit (blood only) 36.2 % (37.0-47.0); Mean Corpuscular Hemoglobin 28.1 pg (25.0-34.0); Mean Corpuscular Hgb Conc 33.1 g/dL (32.0-36.0); Mean Corpuscular Volume 84.8 fL (80.0-100.0); Mean Platelet Volume 9.5 fL (9.4-12.4); Platelet Count 185 K/uL (130-400); RDW Coefficient of Variation 13.2 % (11.5-14.5); RDW Standard Deviation 40.6 fL (36.4-46.3); Red Blood Count 4.27 M/uL (4.20-5.40); White Blood Count 6.03 K/ul (4.8-10.8)
--- NOTE | 2023-12-28 08:30 | Hospitalist Progress Note ---
Date of Service December 28, 2023 Assessment & Plan (1) Atrial fibrillation with rapid ventricular response: (2) Nausea without vomiting: (3) Hyponatremia: (4) HTN, goal below 130/80: (5) Chronic atrial fibrillation: (6) Acute right heart failure: (7) SOB (shortness of breath): (8) Swelling of both lower extremities: (9) Spinal stenosis: (10) Atrial fibrillation: (11) HTN (hypertension): Plan 83yo F with a PMHx significant for HTN, atrial fibrillation on Xarelto, spinal stenosis and other medical problems listed below who presents with worsening swelling of lower extremities x 2 days. Right heart failure Hyponatremia BLE edema and 12 lbs weight gain over the past week BNP 678, HS troponin WNL CXR with Cardiomegaly with mild pulmonary vascular congestion No known h/o CHF Lives in [place] (in [facility] for a family event), follows with cardiology at [facility] in [place] Given 40mg IV lasix in ED, and was treated with IV lasix 60mg BID(nephrology managing), spironolactone 12.5mg daily Strict I&Os, daily weights, low sodium diet Echo -"LVEF 55 to 60%. RV is moderately dilated. RV systolic function is mild to moderately reduced. There is severe tricuspid regurg. RV systolic pressure is elevated at 40 to 50 mmHg." Cardiology consulted, and following - Stopped amlodipine, lyrica (due to volume overload), also stopped HCTZ (given hyponatremia) -IV Lasix 60mg BID switched to po torsemide 40mg BID by nephrology -Aldactone 12.5mg daily added -outpt polysomnography testing Hyponatremia Continue IV lasix with KCl started on urea by nephrology nephrology consulted and closely following Atrial fibrillation Continue Toprol, Xarelto Episodes of RVR with ambulation on 12/27, appreciate further recs from cardiology HTN Holding amlodipine with BLE edema, holding hctz (d/t hyponatremia) - added lisinopril while admitted, continue Toprol as above cont. to monitor Spinal stenosis Worsening lower left sided back pain with radiation down leg - has evaluation with spinal surgery at [facility] next week Holding lyrica as it's possibly contributing to BLE edema Scheduled Tylenol, PRN oxy for moderate pain and PRN dilaudid for severe pain Diet: HH, FR 1500ml DVT prophylaxis: On xarelto Dispo: Acute rehab based on insurance Admission and Anticipated Discharge Date Admission Date: December 24, 2023 Subjective Seen while layin in bed. Per nursing HR in 160s when ambulating. Pt denies feeling. Denies chest pain, SOB. Review of Systems Review of Systems: All systems reviewed & are unremarkable except as noted in Subjective Physical Exam Physical Exam: General: Alert, oriented. No acute distress Psych: Appropriate mood and affect Neuro: No gross deficits HEENT: NC/AT CV: Irregular rate and rhythm Resp: Breath sounds clear bilaterally, no increased effort of breathing. Abdomen: Soft, nontender, nondistended. Extremities: edema in lower extremities bilaterally. Results & Data Results & Data Vital Signs (Past 12 Hours) Vital Signs Temp Pulse Pulse Resp BP Pulse Ox O2 Del Method 12/28/23 07:34 36.6 C 76 17 146/87 H 97 Room Air 12/28/23 07:33 84 12/28/23 03:15 36.6 C 91 H 18 143/88 H 95 Room Air 12/27/23 23:00 98 H 12/27/23 22:31 36.7 C 97 H 18 156/66 H 93 Room Air 12/27/23 21:36 145/84 H
--- NOTE | 2023-12-28 08:50 | Nephrology Progress Note ---
Date of Service December 28, 2023 Assessment & Plan Admission and Anticipated Discharge Date Admission Date: December 24, 2023 Subjective Assessment & Plan (1) Hyponatremia: Hypervolemic Hyponatremia in the setting of Acute CHF. Also was on HCTZ at home. She is also barely eating any solid food but still drinking a good bit. No further workup needed. needs FFR 1500 ml per day and low salt diet. Can stop iv lasix now. Will switch to PO torsemide 40 bid. kcl 20 bid since Aldactone also added. will need labs and cardio/nephro follow up when she goes to [facility] to further adjust the meds. If she goes to rehab then do BMP in few days Check I and O. NO HCTZ ever again. Higher BUN so stop Urea-Na Higher protein diet. may need protein Supplement. her protein intake is very very low so will be hard to raise na enough Avoid Lyrica and Amlodipine for now as they make edema worse. (2) Acute right heart failure: She will need loop diuretics at discharge. Avoid Lyrica and Amlodipine for now as they make edema worse. S--urine output did go up and edema is less. No new issues Physical Exam Physical Exam: General: A&Ox3. Pleasant. Comfortable. Cooperative. Somewhat lethargic. HENT: Normocephalic. Atraumatic. Eyes: PER. Conjunctiva pink, sclera clear. Neck: JVD. Heart: Irregularly irregular at 80 bpm. Systolic murmur heard at the lower left sternal border. No diastolic murmur. No rub. Lungs: Clear to auscultation. Abdomen: +BS. Soft. Nontender. No masses or organomegaly. Extremities: Trace edema. Results & Data Vital Signs (Past 12 Hours) Vital Signs Temp Pulse Pulse Resp BP Pulse Ox O2 Del Method 12/28/23 07:34 36.6 C 76 17 146/87 H 97 Room Air 12/28/23 07:33 84 12/28/23 03:15 36.6 C 91 H 18 143/88 H 95 Room Air 12/27/23 23:00 98 H 12/27/23 22:31 36.7 C 97 H 18 156/66 H 93 Room Air 12/27/23 21:36 145/84 H
[2023-12-28] MEDS: RIVAROXABAN 15 MG TAB PO SCH (16:47)
--- NOTE | 2023-12-28 18:14 | Cardiology Progress Note ---
Date of Service December 28, 2023 Assessment & Plan (1) Acute right heart failure: (2) Hyponatremia: (3) Chronic atrial fibrillation: (4) HTN, goal below 130/80: Plan 83-year-old female with acute right-sided heart failure, hypervolemic hyponatremia. High-dose calcium channel abhi therapy and Lyrica likely contributing factors to volume overload. Hydrochlorothiazide discontinued on admission. Volume status and hyponatremia improving. IV diuretics discontinued. Continue torsemide 40 mg twice daily and potassium supplementation. Low-dose Aldactone added 12/26/2023. Outpatient evaluation for sleep apnea/nocturnal hypoxemia. Chronic atrial fibrillation with fair rate control noted. Continue metoprolol and chronic anticoagulation with Xarelto. Admission and Anticipated Discharge Date Admission Date: December 24, 2023 Subjective 83-year-old female seen and examined at the bedside. Fluid balance negative additional 2.7 L. IV diuretics transition to oral torsemide. Feeling better today. Denies chest pain or shortness of breath. Edema improved. Review of Systems Review of Systems: All systems reviewed & are unremarkable except as noted in Subjective Physical Exam Constitutional: well nourished; no acute distress Respiratory: no respiratory distress, no labored breathing and no retractions Auscultation: no crackles, no rales, no rhonchi and no wheezes Cardiovascular: Rate/Rhythm: + irregularly irregular Heart Sounds: normal S1, normal S2 and + murmur (1/6 midsystolic murmur heard best at the left sternal border) Vessels: + JVD and radial pulses present Extremities: + edema (Trace bilateral pedal edema) Gastrointestinal (Abdomen): Inspection/Auscultation: abdomen normal to inspection and normal bowel sounds; abdomen not distended Percussion/Palpation: abdomen soft; abdomen nontender, no guarding and abdomen not rigid Neurologic: CN's II-XI intact bilaterally and moves all extremities; no focal motor deficits Results & Data Vital Signs (Past 12 Hours) Vital Signs Temp Pulse Pulse Resp BP Pulse Ox O2 Del Method 12/28/23 16:00 100 H 12/28/23 15:11 37.0 C 95 H 18 144/84 H 97 Room Air 12/28/23 11:20 36.5 C 80 17 135/81 94 Room Air 12/28/23 07:34 36.6 C 76 17 146/87 H 97 Room Air 12/28/23 07:33 84 Laboratory Results CBC 12/28/23 Range/Units 05:40 WBC 6.03 (4.8-10.8) K/ul RBC 4.27 (4.20-5.40) M/uL Hgb 12.0 (12.0-16.0) g/dl Hct 36.2 L (37.0-47.0) % Plt Count 185 (130-400) K/uL Comprehensive Metabolic Panel 12/28/23 Range/Units 05:40 Sodium 134 L (136-145) mmol/L Potassium 3.7 (3.5-5.1) mmol/L Chloride 94 L (98-107) mmol/L Carbon Dioxide 33 H (21-32) mmol/L BUN 33 H (6-23) mg/dl Creatinine 0.90 (0.6-1.2) mg/dl Glucose 76 (70-99(Fasting)) mg/dl Calcium 9.6 (8.6-10.3) mg/dl Intake and Output 12/28/23 12/28/23 12/28/23 06:59 14:59 22:59 Intake Total 300 / 1060 790 / 790 Output Total 525 / 4675 1100 / 1800 700 / 1800 Balance -225 / -3615 -1100 / -1010 90 / -1010 Intake: Oral 300 / 1060 790 / 790 Output: Urine 525 / 4675 1100 / 1800 700 / 1800 Other: Weight 64 kg Weight Measurement Method Standing Scale
[2023-12-28] MEDS: TORSEMIDE 20 MG TAB PO SCH (20:06)
[2023-12-29 06:34] LABS: Hematocrit (blood only) 36.5 % (37.0-47.0); Hemoglobin 12.5 g/dl (12.0-16.0); Mean Corpuscular Hemoglobin 28.5 pg (25.0-34.0); Mean Corpuscular Hgb Conc 34.2 g/dL (32.0-36.0); Mean Corpuscular Volume 83.1 fL (80.0-100.0); Platelet Count 195 K/uL (130-400); RDW Coefficient of Variation 13.3 % (11.5-14.5); Red Blood Count 4.39 M/uL (4.20-5.40); White Blood Count 7.04 K/ul (4.8-10.8)
[2023-12-29 06:55] LABS: BUN Creatinine Ratio 29.5 (10-20); Calcium 9.8 mg/dl (8.6-10.3); Est GFR (African American) 69.4 ml/min; Est GFR (Non-African American) 59.9 ml/min; Phosphorus 3.6 mg/dl (2.5-4.9); Potassium 3.3 mmol/L (3.5-5.1)
[2023-12-29] MEDS: POTASSIUM CHLORIDE CRTAB 20 MEQ TABCR PO STA (10:53)
--- NOTE | 2023-12-29 11:19 | Cardiology Progress Note ---
Date of Service December 29, 2023 Assessment & Plan (1) Acute right heart failure: (2) Hyponatremia: (3) Chronic atrial fibrillation: (4) HTN, goal below 130/80: Plan 83-year-old female with acute right-sided heart failure, hypervolemic hyponatremia. High-dose calcium channel abhi therapy and Lyrica likely contributing factors to volume overload. Hydrochlorothiazide discontinued on admission. IV diuretics discontinued. Reduce torsemide to 40 mg daily. Continue potassium supplementation as per nephrology. Low-dose Aldactone added 12/26/2023. Outpatient evaluation for sleep apnea/nocturnal hypoxemia. Chronic atrial fibrillation with fair rate control noted. Continue metoprolol and chronic anticoagulation with Xarelto. No further inpatient cardiac testing or intervention recommended at this time. Cardiology will sign off. Please call with additional concerns/questions. Admission and Anticipated Discharge Date Admission Date: December 24, 2023 Subjective Patient seen examined the bedside. Edema markedly improved. Serum sodium trending upward. Intermittent elevated heart rate noted with activity although heart rate generally in the 80s at rest. Denies palpitations or lightheadedness. No chest discomfort. Mild hypokalemia noted this a.m. Review of Systems Review of Systems: All systems reviewed & are unremarkable except as noted in Subjective Physical Exam Constitutional: well nourished; no acute distress Respiratory: no respiratory distress, no labored breathing and no retractions Auscultation: no crackles, no rales, no rhonchi and no wheezes Cardiovascular: Rate/Rhythm: + irregularly irregular Heart Sounds: normal S1, normal S2 and + murmur (1/6 midsystolic murmur heard best at the left sternal border) Vessels: radial pulses present; no JVD Extremities: no edema Gastrointestinal (Abdomen): Inspection/Auscultation: abdomen normal to inspection and normal bowel sounds; abdomen not distended Pe rcussion/Palpation: abdomen soft; abdomen nontender, no guarding and abdomen not rigid Neurologic: CN's II-XI intact bilaterally and moves all extremities; no focal motor deficits Results & Data Vital Signs (Past 12 Hours) Vital Signs Temp Pulse Pulse Resp BP Pulse Ox O2 Del Method 12/29/23 07:31 37.0 C 110 H 17 149/86 H 96 Room Air 12/29/23 07:27 90 12/29/23 05:11 151/87 H 12/29/23 03:18 36.9 C 78 18 172/84 H 94 Room Air Laboratory Results CBC 12/29/23 Range/Units 06:05 WBC 7.04 (4.8-10.8) K/ul RBC 4.39 (4.20-5.40) M/uL Hgb 12.5 (12.0-16.0) g/dl Hct 36.5 L (37.0-47.0) % Plt Count 195 (130-400) K/uL Comprehensive Metabolic Panel 12/29/23 Range/Units 06:05 Sodium 137 (136-145) mmol/L Potassium 3.3 L (3.5-5.1) mmol/L Chloride 94 L (98-107) mmol/L Carbon Dioxide 34 H (21-32) mmol/L BUN 26 H (6-23) mg/dl Creatinine 0.88 (0.6-1.2) mg/dl Glucose 96 (70-99(Fasting)) mg/dl Calcium 9.8 (8.6-10.3) mg/dl Intake and Output 12/28/23 12/29/23 12/29/23 22:59 06:59 14:59 Intake Total 1090 / 1090 500 / 500 Output Total 1350 / 3450 1000 / 3450 850 / 850 Balance -260 / -2360 -1000 / -2360 -350 / -350 Intake: Oral 1090 / 1090 500 / 500 Output: Urine 1350 / 3450 1000 / 3450 850 / 850 Other: Weight 59.7 kg Weight Measurement Method Standing Scale
--- NOTE | 2023-12-29 14:59 | Hospitalist Progress Note ---
Date of Service December 29, 2023 Assessment & Plan (1) Atrial fibrillation with rapid ventricular response: (2) Nausea without vomiting: (3) Hyponatremia: (4) HTN, goal below 130/80: (5) Chronic atrial fibrillation: (6) Acute right heart failure: (7) SOB (shortness of breath): (8) Swelling of both lower extremities: (9) Spinal stenosis: (10) Atrial fibrillation: (11) HTN (hypertension): Plan 83yo F with a PMHx significant for HTN, atrial fibrillation on Xarelto, spinal stenosis and other medical problems listed below who presents with worsening swelling of lower extremities x 2 days. Right heart failure Hyponatremia BLE edema and 12 lbs weight gain over the past week BNP 678, HS troponin WNL CXR with Cardiomegaly with mild pulmonary vascular congestion No known h/o CHF Lives in [place] (in town for a family event), follows with cardiology at [facility] in [place] Given 40mg IV lasix in ED, and was treated with IV lasix 60mg BID(nephrology managing), spironolactone 12.5mg daily Strict I&Os, daily weights, low sodium diet Echo -"LVEF 55 to 60%. RV is moderately dilated. RV systolic function is mild to moderately reduced. There is severe tricuspid regurg. RV systolic pressure is elevated at 40 to 50 mmHg." Cardiology consulted, and following - Stopped amlodipine, lyrica (due to volume overload), also stopped HCTZ (given hyponatremia) -IV Lasix 60mg BID switched to po torsemide 40mg BID by nephrology. Continue with torsemide 40mg DAILY -Continue KCl per nephrology, 20mEq BID -Aldactone 12.5mg daily -outpt polysomnography testing Hyponatremia Continue IV lasix with KCl started on urea by nephrology nephrology consulted and closely following, appreciate recs Atrial fibrillation Continue Toprol, Xarelto Episodes of RVR with ambulation on 12/27, appreciate further recs from cardiology HTN Holding amlodipine with BLE edema, holding hctz (d/t hyponatremia) - added aniyah nopril while admitted, continue Toprol as above cont. to monitor Spinal stenosis Worsening lower left sided back pain with radiation down leg - has evaluation with spinal surgery at [facility] next week Holding lyrica as it's possibly contributing to BLE edema Scheduled Tylenol, PRN oxy for moderate pain and PRN dilaudid for severe pain Diet: HH, FR 1500ml DVT prophylaxis: On xarelto Dispo: Acute rehab Admission and Anticipated Discharge Date Admission Date: December 24, 2023 Subjective Seen with family at bedside. Denied acute concerns. Review of Systems Review of Systems: All systems reviewed & are unremarkable except as noted in Subjective Physical Exam Physical Exam: General: Alert, oriented. No acute distress Psych: Appropriate mood and affect Neuro: No gross deficits HEENT: NC/AT CV: Irregular rate and rhythm Resp: Breath sounds clear bilaterally, no increased effort of breathing. Abdomen: Soft, nontender, nondistended. Extremities: edema in lower extremities bilaterally. Results & Data Results & Data Vital Signs (Past 12 Hours) Vital Signs Temp Pulse Pulse Resp BP Pulse Ox O2 Del Method 12/29/23 11:42 36.6 C 100 H 18 144/77 H 94 Room Air 12/29/23 07:31 37.0 C 110 H 17 149/86 H 96 Room Air 12/29/23 07:27 90 12/29/23 05:11 151/87 H 12/29/23 03:18 36.9 C 78 18 172/84 H 94 Room Air
[2023-12-30 06:44] LABS: Hematocrit (blood only) 44.2 % (37.0-47.0); Hemoglobin 14.7 g/dl (12.0-16.0); Mean Corpuscular Hemoglobin 28.5 pg (25.0-34.0); Mean Corpuscular Hgb Conc 33.3 g/dL (32.0-36.0); Mean Corpuscular Volume 85.7 fL (80.0-100.0); Mean Platelet Volume 9.3 fL (9.4-12.4); Platelet Count 241 K/uL (130-400); RDW Coefficient of Variation 13.5 % (11.5-14.5); RDW Standard Deviation 42.1 fL (36.4-46.3); Red Blood Count 5.16 M/uL (4.20-5.40); White Blood Count 8.09 K/ul (4.8-10.8)
[2023-12-30 06:52] LABS: Calcium 10.6 mg/dl (8.6-10.3); Est GFR (African American) 56.1 ml/min; Est GFR (Non-African American) 48.4 ml/min; Magnesium 2.4 mg/dl (1.7-2.4); Phosphorus 4.9 mg/dl (2.5-4.9); Potassium 4.7 mmol/L (3.5-5.1)
[2023-12-30] MEDS: POTASSIUM CHLORIDE CRTAB 20 MEQ TABCR PO SCH (08:08)
[2023-12-30] MEDS: TORSEMIDE 20 MG TAB PO SCH (08:09)
--- NOTE | 2023-12-30 12:19 | Hospitalist Progress Note ---
Date of Service December 30, 2023 Assessment & Plan (1) Atrial fibrillation with rapid ventricular response: (2) Nausea without vomiting: (3) Hyponatremia: (4) HTN, goal below 130/80: (5) Chronic atrial fibrillation: (6) Acute right heart failure: (7) SOB (shortness of breath): (8) Swelling of both lower extremities: (9) Spinal stenosis: (10) Atrial fibrillation: (11) HTN (hypertension): Plan 83yo F with a PMHx significant for HTN, atrial fibrillation on Xarelto, spinal stenosis and other medical problems listed below who presents with worsening swelling of lower extremities x 2 days. Right heart failure Hyponatremia BLE edema and 12 lbs weight gain over the past week BNP 678, HS troponin WNL CXR with Cardiomegaly with mild pulmonary vascular congestion No known h/o CHF Lives in [place] (in [facility] for a family event), follows with cardiology at [facility] in [place] Given 40mg IV lasix in ED, and was treated with IV lasix 60mg BID(nephrology managing), spironolactone 12.5mg daily Strict I&Os, daily weights, low sodium diet Echo -"LVEF 55 to 60%. RV is moderately dilated. RV systolic function is mild to moderately reduced. There is severe tricuspid regurg. RV systolic pressure is elevated at 40 to 50 mmHg." Cardiology consulted, and following - Stopped amlodipine, lyrica (due to volume overload), also stopped HCTZ (given hyponatremia) -IV Lasix 60mg BID switched to po torsemide 40mg BID by nephrology. Continue with torsemide 40mg DAILY -Continue KCl 20mEq daily -Aldactone 12.5mg daily -outpt polysomnography testing Hyponatremia Advised IV lasix with KCl, transitioned to po torsemide Started on urea by nephrology, has since been discontinued due to increased BUN Nephrology recommended the following: -labs and cardio/nephro follow up when she goes to [facility] to further adjust the meds. -BMP in a few days after discharge to rehab -Discontinue HCTZ permanently Close Nephrology followup after discharge Atrial fibrillation Continue Toprol 200mg daily, Xarelto Close cardiology followup after discharge HTN Holding amlodipine with BLE edema, holding hctz (d/t hyponatremia) Added lisinopril while admitted Also on spironolactone 12.5mg as noted above continue Toprol as above continue to monitor Spinal stenosis Worsening lower left sided back pain with radiation down leg - has evaluation with spinal surgery at [facility] next week Holding lyrica as it's possibly contributing to BLE edema Scheduled Tylenol, PRN oxy for moderate pain and PRN dilaudid for severe pain Diet: HH, FR 1500ml DVT prophylaxis: On xarelto Dispo: Acute rehab Admission and Anticipated Discharge Date Admission Date: December 24, 2023 Subjective pt was seen laying in bed. No new complaints. Denied chest pain, SOB or feeling paplpitations Review of Systems Review of Systems: All systems reviewed & are unremarkable except as noted in Subjective Physical Exam Physical Exam: General: Alert, oriented. No acute distress Psych: Appropriate mood and affect Neuro: No gross deficits HEENT: NC/AT CV: Irregular rate and rhythm Resp: Breath sounds clear bilaterally, no increased effort of breathing. Abdomen: Soft, nontender, nondistended. Extremities: edema in lower extremities bilaterally. Results & Data Results & Data Vital Signs (Past 12 Hours) Vital Signs Temp Pulse Pulse Resp BP Pulse Ox O2 Del Method 12/30/23 10:40 36.5 C 114 H 19 120/75 95 Room Air 12/30/23 07:49 36.7 C 86 18 125/86 93 Room Air 12/30/23 05:48 95 H 12/30/23 02:30 36.9 C 78 18 135/77 95 Room Air
[2023-12-31 06:38] LABS: Hematocrit (blood only) 42.5 % (37.0-47.0); Hemoglobin 14.3 g/dl (12.0-16.0); Mean Corpuscular Hemoglobin 28.2 pg (25.0-34.0); Mean Corpuscular Hgb Conc 33.6 g/dL (32.0-36.0); Mean Corpuscular Volume 83.8 fL (80.0-100.0); Mean Platelet Volume 9.2 fL (9.4-12.4); Platelet Count 240 K/uL (130-400); RDW Coefficient of Variation 13.5 % (11.5-14.5); RDW Standard Deviation 41.2 fL (36.4-46.3); Red Blood Count 5.07 M/uL (4.20-5.40); White Blood Count 7.69 K/ul (4.8-10.8)
[2023-12-31 06:55] LABS: BUN Creatinine Ratio 22.5 (10-20); Calcium 9.9 mg/dl (8.6-10.3); Creatinine Clr Calc Pharmacy 31.9 ml/min; Est GFR (African American) 58.1 ml/min; Est GFR (Non-African American) 50.1 ml/min; Phosphorus 5.1 mg/dl (2.5-4.9); Potassium 3.9 mmol/L (3.5-5.1)
[2023-12-31 08:33] LABS: Magnesium 2.4 mg/dl (1.7-2.4)
--- NOTE | 2023-12-31 12:37 | Hospitalist Progress Note ---
Date of Service December 31, 2023 Assessment & Plan (1) Atrial fibrillation with rapid ventricular response: (2) Nausea without vomiting: (3) Hyponatremia: (4) HTN, goal below 130/80: (5) Chronic atrial fibrillation: (6) Acute right heart failure: (7) SOB (shortness of breath): (8) Swelling of both lower extremities: (9) Spinal stenosis: (10) Atrial fibrillation: (11) HTN (hypertension): Plan 83yo F with a PMHx significant for HTN, atrial fibrillation on Xarelto, spinal stenosis and other medical problems listed below who presents with worsening swelling of lower extremities x 2 days. Right heart failure Hyponatremia BLE edema and 12 lbs weight gain over the past week BNP 678, HS troponin WNL CXR with Cardiomegaly with mild pulmonary vascular congestion No known h/o CHF Lives in [place] (in [facility] for a family event), follows with cardiology at [facility] in [place] Given 40mg IV lasix in ED, and was treated with IV lasix 60mg BID(nephrology managing), spironolactone 12.5mg daily Strict I&Os, daily weights, low sodium diet Echo -"LVEF 55 to 60%. RV is moderately dilated. RV systolic function is mild to moderately reduced. There is severe tricuspid regurg. RV systolic pressure is elevated at 40 to 50 mmHg." Cardiology consulted, and following - Stopped amlodipine, lyrica (due to volume overload), also stopped HCTZ (given hyponatremia) -IV Lasix 60mg BID switched to po torsemide 40mg BID by nephrology. Continue with torsemide 40mg DAILY -Continue KCl 20mEq daily -Aldactone 12.5mg daily -outpt polysomnography testing Hyponatremia Advised IV lasix with KCl, transitioned to po torsemide Started on urea by nephrology, has since been discontinued due to increased BUN Nephrology recommended the following: -labs and cardio/nephro follow up when she goes to [place] to further adjust the meds. -BMP in a few days after discharge to rehab -Discontinue HCTZ permanently Close Nephrology followup after discharge Atrial fibrillation Continue Toprol 200mg daily, Xarelto Close cardiology followup after discharge HTN Holding amlodipine with BLE edema, holding hctz (d/t hyponatremia) Added lisinopril while admitted Also on spironolactone 12.5mg as noted above continue Toprol as above continue to monitor Spinal stenosis Worsening lower left sided back pain with radiation down leg - has evaluation with spinal surgery at [facility] next week Holding lyrica as it's possibly contributing to BLE edema Scheduled Tylenol, PRN oxy for moderate pain and PRN dilaudid for severe pain Diet: HH, FR 1500ml DVT prophylaxis: On xarelto Dispo: Acute rehab Admission and Anticipated Discharge Date Admission Date: December 24, 2023 Subjective pt was seen laying in bed. No new complaints. Denied chest pain, SOB or feeling palpitations Asking about leaving as she is currently awaiting placement. Review of Systems Review of Systems: All systems reviewed & are unremarkable except as noted in Subjective Physical Exam Physical Exam: General: Alert, oriented. No acute distress Psych: Appropriate mood and affect Neuro: No gross deficits HEENT: NC/AT CV: Irregular rate and rhythm Resp: Breath sounds clear bilaterally, no increased effort of breathing. Abdomen: Soft, nontender, nondistended. Extremities: edema in lower extremities bilaterally. Results & Data Results & Data Vital Signs (Past 12 Hours) Vital Signs Temp Pulse Pulse Resp BP Pulse Ox O2 Del Method 12/31/23 11:26 36.5 C 74 18 115/74 94 Room Air 12/31/23 07:43 36.6 C 65 18 130/78 96 Room Air 12/31/23 07:00 117 H 12/31/23 02:42 36.8 C 93 H 18 149/87 H 96 Room Air
[2024-01-01] MEDS: MAGNESIUM OXIDE 400 MG TAB PO SCH (07:38)
[2024-01-01 07:42] LABS: Hematocrit (blood only) 43.2 % (37.0-47.0); Hemoglobin 14.5 g/dl (12.0-16.0); Mean Corpuscular Hemoglobin 28.2 pg (25.0-34.0); Mean Corpuscular Hgb Conc 33.6 g/dL (32.0-36.0); Mean Corpuscular Volume 83.9 fL (80.0-100.0); Mean Platelet Volume 9.2 fL (9.4-12.4); Platelet Count 230 K/uL (130-400); RDW Coefficient of Variation 13.4 % (11.5-14.5); Red Blood Count 5.15 M/uL (4.20-5.40); White Blood Count 6.69 K/ul (4.8-10.8)
[2024-01-01 08:22] LABS: BUN Creatinine Ratio 27.3 (10-20); Calcium 10.2 mg/dl (8.6-10.3); Creatinine Clr Calc Pharmacy 29.6 ml/min; Est GFR (Non-African American) 45.7 ml/min; Magnesium 2.5 mg/dl (1.7-2.4); Phosphorus 5.4 mg/dl (2.5-4.9); Potassium 3.8 mmol/L (3.5-5.1)
--- NOTE | 2024-01-01 14:25 | Hospitalist Progress Note ---
Date of Service January 01, 2024 Assessment & Plan (1) Atrial fibrillation with rapid ventricular response: (2) Nausea without vomiting: (3) Hyponatremia: (4) HTN, goal below 130/80: (5) Chronic atrial fibrillation: (6) Acute right heart failure: (7) SOB (shortness of breath): (8) Swelling of both lower extremities: (9) Spinal stenosis: (10) Atrial fibrillation: (11) HTN (hypertension): Plan 83yo F with a PMHx significant for HTN, atrial fibrillation on Xarelto, spinal stenosis and other medical problems listed below who presents with worsening swelling of lower extremities x 2 days. Stable for discharge, currently awaiting placement Right heart failure Hyponatremia BLE edema and 12 lbs weight gain over the past week BNP 678, HS troponin WNL CXR with Cardiomegaly with mild pulmonary vascular congestion No known h/o CHF Lives in [place] (in [id number] for a [facility] event), follows with cardiology at [facility] in [place] Given 40mg IV lasix in ED, and was treated with IV lasix 60mg BID(nephrology managing), spironolactone 12.5mg daily Strict I&Os, daily weights, low sodium diet Echo -"LVEF 55 to 60%. RV is moderately dilated. RV systolic function is mild to moderately reduced. There is severe tricuspid regurg. RV systolic pressure is elevated at 40 to 50 mmHg." Cardiology consulted, and following - Stopped amlodipine, lyrica (due to volume overload), also stopped HCTZ (given hyponatremia) -IV Lasix 60mg BID switched to po torsemide 40mg BID by nephrology. Continue with torsemide 40mg DAILY -Continue KCl 20mEq daily -Aldactone 12.5mg daily -outpt polysomnography testing Hyponatremia Advised IV lasix with KCl, transitioned to po torsemide Started on urea by nephrology, has since been discontinued due to increased BUN Nephrology recommended the following: -labs and cardio/nephro follow up when she goes to [place] to further adjust the meds. -BMP in a few days after discharge to rehab -Discontinue HCTZ permanently Close Nephrology followup after discharge Atrial fibrillation Continue Toprol 200mg daily, Xarelto Close cardiology followup after discharge HTN Holding amlodipine with BLE edema, holding hctz (d/t hyponatremia) Added lisinopril while admitted Also on spironolactone 12.5mg as noted above continue Toprol as above continue to monitor Spinal stenosis Worsening lower left sided back pain with radiation down leg - has evaluation with spinal surgery at [facility] next week Holding lyrica as it's possibly contributing to BLE edema Scheduled Tylenol, PRN oxy for moderate pain and PRN dilaudid for severe pain Diet: HH, FR 1500ml DVT prophylaxis: On xarelto Dispo: Acute rehab. peer to peer needed. Could not be completed on the weekend Admission and Anticipated Discharge Date Admission Date: December 24, 2023 Subjective pt was seen laying in bed. Denied acute concerns Review of Systems Review of Systems: All systems reviewed & are unremarkable except as noted in Subjective Physical Exam Physical Exam: General: Alert, oriented. No acute distress Psych: Appropriate mood and affect Neuro: No gross deficits HEENT: NC/AT CV: Irregular rate and rhythm Resp: Breath sounds clear bilaterally, no increased effort of breathing. Abdomen: Soft, nontender, nondistended. Extremities: edema in lower extremities bilaterally. Results & Data Results & Data Vital Signs (Past 12 Hours) Vital Signs Temp Pulse Pulse Resp BP Pulse Ox O2 Del Method 01/01/24 11:45 36.4 C L 90 18 103/70 95 Room Air 01/01/24 07:55 36.7 C 72 17 133/75 96 Room Air 01/01/24 07:05 93 H 01/01/24 03:38 36.5 C 112 H 16 131/87 95 Room Air
--- NOTE | 2024-01-01 15:05 | Nephrology Progress Note ---
Date of Service January 01, 2024 Assessment & Plan (1) Hyponatremia: Plan: Hypervolemic Hyponatremia in the setting of Acute CHF. Also was on HCTZ at home. Sodium is fairly stable at 135. -Fluid limit 1.5 L -Higher protein diet. From renal standpoint patient can be discharged on current regimen (2) Acute right heart failure: Plan: Continue torsemide 40 mg daily and Aldactone 12.5 mg daily (3) Hyperphosphatemia: Plan: Phosphorus and Magnesium mildly elevated. No need for phosphate binders. No need to restrict dietary phosphate either. I would rather patient improves her nutrition without much restriction. From renal standpoint patient can be discharged. No need for daily Magnesium and phosphorus labs Admission and Anticipated Discharge Date Admission Date: December 24, 2023 Subjective Seen for hyponatremia and hypophosphatemia.No shortness of breath or leg swelling. She is eating better now. Review of Systems 2 Review of Systems: All other systems were reviewed and negative except as noted in HPI Physical Exam 2 Physical Exam: General exam: Appears comfortable, no acute distress HEENT: Pupils are equal and reactive to light Neck: No JVD, neck is supple trachea is midline Respiratory system: Clear breath sounds bilaterally. Gastrointestinal: Abdomen is soft, non distended, non tender, bowel sounds are present CVS: Regular rate and rhythm. No murmurs, rubs or gallops Musculoskeletal: No joint or muscle tenderness Extremities: Non tender, no edema, peripheral pulses are present Neuro: Oriented, no tremors, no focal neurological deficits Skin: No rashes Results & Data Vital Signs (Past 12 Hours) Vital Signs Temp Pulse Pulse Resp BP Pulse Ox O2 Del Method 01/01/24 11:45 36.4 C L 90 18 103/70 95 Room Air 01/01/24 07:55 36.7 C 72 17 133/75 96 Room Air 01/01/24 07:05 93 H 01/01/24 03:38 36.5 C 112 H 16 131/87 95 Room Air Laboratory Results 01/01/24 07:12 01/01/24 07:12 WBC 6.69 RBC 5.15 MCV 83.9 MCH 28.2 MCHC 33.6 RDW Std Deviation 41.0 RDW Coeff of Lance 13.4 Plt Count 230 MPV 9.2 L Phosphorus 5.4 H
[2024-01-02 06:44] LABS: Hematocrit (blood only) 44.8 % (37.0-47.0); Mean Corpuscular Hemoglobin 28.2 pg (25.0-34.0); Mean Corpuscular Hgb Conc 33.5 g/dL (32.0-36.0); Mean Corpuscular Volume 84.2 fL (80.0-100.0); Mean Platelet Volume 9.3 fL (9.4-12.4); Platelet Count 250 K/uL (130-400); RDW Coefficient of Variation 13.4 % (11.5-14.5); RDW Standard Deviation 41.4 fL (36.4-46.3); Red Blood Count 5.32 M/uL (4.20-5.40); White Blood Count 7.17 K/ul (4.8-10.8)
[2024-01-02 07:04] LABS: BUN Creatinine Ratio 26.1 (10-20); Calcium 10.1 mg/dl (8.6-10.3); Creatinine Clr Calc Pharmacy 28.3 ml/min; Est GFR (African American) 50.2 ml/min; Est GFR (Non-African American) 43.4 ml/min; Magnesium 2.5 mg/dl (1.7-2.4); Phosphorus 4.5 mg/dl (2.5-4.9)
[2024-01-02] MEDS: METOPROLOL TARTRATE 1 MG/ML VIAL IV STA (12:37)
--- NOTE | 2024-01-02 14:24 | Cardiology Progress Note ---
Date of Service January 02, 2024 Assessment & Plan (1) Acute right heart failure: (2) Hyponatremia: (3) Chronic atrial fibrillation: (4) HTN, goal below 130/80: Plan 83-year-old female with acute right-sided heart failure, hypervolemic hyponatremia. High-dose calcium channel abhi therapy and Lyrica likely contributing factors to volume overload. Hydrochlorothiazide discontinued on admission. Signs and symptoms of right heart failure substantially improved since admission Longstanding persistent atrial fibrillation remains present with elevated heart rates at times. Patient asymptomatic Discussed management with patient she is reluctant to change therapies but would add low-dose digoxin with 0.25 mg p.o. today and tomorrow and then 0.125 mg Tuesday Patient agreeable to this change Okay for rehab transfer if available Admission and Anticipated Discharge Date Admission Date: December 24, 2023 Subjective Patient seen and personally examined Denies any cardiac complaints Requested reevaluation due to persistent elevation in heart rate. Patient unaware of tachypalpitations exertional dyspnea orthopnea. Lower extremity edema resolved. No fevers or chills. Currently on Toprol-XL at 200 mg/day patient's usual dose for "many years" Physical Exam Constitutional: well developed and well nourished; no acute distress and not ill appearing Neck: normal visual inspection and trachea midline Respiratory: normal respiratory effort, lungs clear to auscultation no respiratory distress, no labored breathing, no retractions and no cough Auscultation: no crackles, no rales, no rhonchi and no wheezes Cardiovascular: Rate/Rhythm: + irregularly irregular Heart Sounds: normal S1, normal S2 and + murmur (1/6 midsystolic murmur heard best at the left sternal border) Vessels: radial pulses present; no JVD Extremities: no edema Gastrointestinal (Abdomen): Inspection/Auscultation: abdomen normal to inspection and normal bowel sounds; abdomen not distended Percussion/Palpation: abdomen soft; abdomen nontender, no guarding and abdomen not rigid Skin: no rashes, warm and dry Neurologic: CN's II-XI intact bilaterally and moves all extremities; no focal motor deficits Psychiatric: A+Ox3, euthymic affect Results & Data Vital Signs (Past 12 Hours) Vital Signs Temp Pulse Pulse Resp BP Pulse Ox O2 Del Method 01/02/24 13:43 112 H 01/02/24 12:37 121 H 01/02/24 11:49 36.4 C L 113 H 18 110/64 94 Room Air 01/02/24 07:32 36.4 C L 75 18 108/60 96 Room Air 01/02/24 05:59 167 H 01/02/24 02:56 36.7 C 95 H 16 115/67 93 Room Air Laboratory Results Laboratory Results - last 24 hr 01/02/24 05:39 WBC 7.17 RBC 5.32 Hgb 15.0 Hct 44.8 MCV 84.2 MCH 28.2 MCHC 33.5 RDW Std Deviation 41.4 RDW Coeff of Lance 13.4 Plt Count 250 MPV 9.3 L Sodium 136 Potassium 4.0 Chloride 97 L Carbon Dioxide 31 Anion Gap 8 BUN 30 H Creatinine 1.15 Est Cr Clr Drug Dosing 28.3 Est GFR ( Amer) 50.2 Est GFR (Non-Af Amer) 43.4 BUN/Creatinine Ratio 26.1 H Glucose 94 Calcium 10.1 Phosphorus 4.5 Magnesium 2.5 H
[2024-01-02] MEDS: DIGOXIN 0.125 MG TAB PO ONE (14:39)
--- NOTE | 2024-01-02 15:32 | Hospitalist Progress Note ---
Date of Service January 02, 2024 Assessment & Plan (1) Atrial fibrillation with rapid ventricular response: (2) Nausea without vomiting: (3) Hyponatremia: (4) HTN, goal below 130/80: (5) Chronic atrial fibrillation: (6) Acute right heart failure: (7) SOB (shortness of breath): (8) Swelling of both lower extremities: (9) Spinal stenosis: (10) Atrial fibrillation: (11) HTN (hypertension): Plan 83yo F with a PMHx significant for HTN, atrial fibrillation on Xarelto, spinal stenosis and other medical problems listed below who presents with worsening swelling of lower extremities x 2 days. Stable for discharge, currently awaiting placement -peer to peer completed on 01/01. Pt denied acute rehab but approved for SNF/subacute care Right heart failure Hyponatremia BLE edema and 12 lbs weight gain over the past week BNP 678, HS troponin WNL CXR with Cardiomegaly with mild pulmonary vascular congestion No known h/o CHF Lives in [place] (in [facility]), follows with cardiology at [facility] in [place] Given 40mg IV lasix in ED, and was treated with IV lasix 60mg BID(nephrology managing), spironolactone 12.5mg daily Strict I&Os, daily weights, low sodium diet Echo -"LVEF 55 to 60%. RV is moderately dilated. RV systolic function is mild to moderately reduced. There is severe tricuspid regurg. RV systolic pressure is elevated at 40 to 50 mmHg." Cardiology consulted, and following - Stopped amlodipine, lyrica (due to volume overload), also stopped HCTZ (given hyponatremia) -IV Lasix 60mg BID switched to po torsemide 40mg BID by nephrology. Continue with torsemide 40mg DAILY -Continue KCl 20mEq daily -Aldactone 12.5mg daily -outpt polysomnography testing Hyponatremia Advised IV lasix with KCl, transitioned to po torsemide Started on urea by nephrology, has since been discontinued due to increased BUN Nephrology recommended the following: -labs and cardio/nephro follow up when she goes to [place] to further adjust the meds. -BMP in a few days after discharge to rehab -Discontinue HCTZ permanently Close Nephrology followup after discharge Atrial fibrillation Continue Toprol 200mg daily, Xarelto Close cardiology followup after discharge 01/01- HRs have been trending higher, pt asymptomatic. Cardiology consulted once more, pt agreeable to addition of Digoxin doses currently. Continue to monitor on telemetry. HTN Holding amlodipine with BLE edema, holding hctz (d/t hyponatremia) Added lisinopril while admitted Also on spironolactone 12.5mg as noted above continue Toprol as above continue to monitor Spinal stenosis Worsening lower left sided back pain with radiation down leg - has evaluation with spinal surgery at [facility] next week Holding lyrica as it's possibly contributing to BLE edema Scheduled Tylenol, PRN oxy for moderate pain and PRN dilaudid for severe pain Diet: HH, FR 1500ml DVT prophylaxis: On xarelto Dispo: Acute rehab. peer to peer needed. Could not be completed on the weekend Admission and Anticipated Discharge Date Admission Date: December 24, 2023 Subjective Pt seen multiple times throughout the day. Her HRs have been trending higher, she denies feeling it. Denies SOB or chest pain. Completed peer to peer, denied acute rehab but approved for SNF or subacute rehab. Review of Systems Review of Systems: All systems reviewed & are unremarkable except as noted in Subjective Physical Exam Physical Exam: General: Alert, oriented. No acute distress Psych: Appropriate mood and affect Neuro: No gross deficits HEENT: NC/AT CV: Irregular rate and rhythm Resp: Breath sounds clear bilaterally, no increased effort of breathing. Abdomen: Soft, nontender, nondistended. Extremities: edema in lower extremities bilaterally. Results & Data Results & Data Vital Signs (Past 12 Hours) Vital Signs Temp Pulse Pulse Resp BP Pulse Ox O2 Del Method 01/02/24 11:49 36.4 C L 113 H 18 110/64 94 Room Air 01/02/24 07:32 36.4 C L 75 18 108/60 96 Room Air 01/02/24 05:59 167 H 01/02/24 02:56 36.7 C 95 H 16 115/67 93 Room Air
[2024-01-03 06:23] LABS: Hematocrit (blood only) 45.6 % (37.0-47.0); Hemoglobin 15.2 g/dl (12.0-16.0); Mean Corpuscular Hemoglobin 28.1 pg (25.0-34.0); Mean Corpuscular Hgb Conc 33.3 g/dL (32.0-36.0); Mean Corpuscular Volume 84.4 fL (80.0-100.0); Mean Platelet Volume 8.9 fL (9.4-12.4); Platelet Count 246 K/uL (130-400); RDW Coefficient of Variation 13.5 % (11.5-14.5); RDW Standard Deviation 41.4 fL (36.4-46.3); White Blood Count 7.54 K/ul (4.8-10.8)
[2024-01-03 06:30] LABS: BUN Creatinine Ratio 28.2 (10-20); Calcium 10.1 mg/dl (8.6-10.3); Creatinine Clr Calc Pharmacy 27.8 ml/min; Est GFR (African American) 49.2 ml/min; Est GFR (Non-African American) 42.5 ml/min; Potassium 4.1 mmol/L (3.5-5.1)
--- NOTE | 2024-01-03 14:23 | Cardiology Progress Note ---
Date of Service January 03, 2024 Assessment & Plan (1) Acute right heart failure: (2) Hyponatremia: (3) Chronic atrial fibrillation: (4) HTN, goal below 130/80: Plan 83-year-old female with acute right-sided heart failure, hypervolemic hyponatremia. High-dose calcium channel abhi therapy and Lyrica likely contributing factors to volume overload. Hydrochlorothiazide discontinued on admission. Signs and symptoms of right heart failure substantially improved since admission Longstanding persistent atrial fibrillation remains present with elevated heart rates at times. Patient asymptomatic Discussed management with patient she is reluctant to change therapies but would add low-dose digoxin with 0.25 mg p.o. today and tomorrow and then 0.125 mg Tuesday Patient agreeable to this change Okay for rehab transfer if available 01/03/2024 Plan and recommendations as above Additional digoxin 0.25 mg p.o. today then 0.125 mg Tuesday Volume status well management. May ultimately require reduction in torsemide dosing slight Patient to follow-up with primary inbound sales representative [place] Admission and Anticipated Discharge Date Admission Date: December 24, 2023 Subjective Patient seen and examined. Asymptomatic from cardiac standpoint. Remains in atrial fibrillation as chronically so heart rates do increase with activity. Patient asymptomatic no dizziness or lightheadedness. Patient aware of longstanding similar findings Follows with cardiology in [place] Review of Systems Review of Systems: All systems reviewed & are unremarkable except as noted in Subjective Physical Exam Constitutional: well developed and well nourished; no acute distress and not ill appearing Neck: normal visual inspection and trachea midline Respiratory: normal respiratory effort, lungs clear to auscultation no respiratory distress, no labored breathing, no retractions and no cough Auscultation: no crackles, no rales, no rhonchi and no wheezes Cardiovascular: Rate/Rhythm: + irregularly irregular Heart Sounds: normal S1, normal S2 and + murmur (1/6 midsystolic murmur heard best at the left sternal border) Vessels: radial pulses present; no JVD Extremities: no edema Gastrointestinal (Abdomen): Inspection/Auscultation: abdomen normal to inspection and normal bowel sounds; abdomen not distended Percussion/Palpation: abdomen soft; abdomen nontender, no guarding and abdomen not rigid Skin: no rashes, warm and dry Neurologic: CN's II-XI intact bilaterally and moves all extremities; no focal motor deficits Psychiatric: A+Ox3, euthymic affect Results & Data Vital Signs (Past 12 Hours) Vital Signs Temp Pulse Pulse Pulse Resp BP Pulse Ox 01/03/24 09:45 01/03/24 07:39 98 H 01/03/24 07:31 36.3 C L 79 18 114/74 96 01/03/24 03:41 36.5 C 115 H 20 131/91 98 O2 Del Method 01/03/24 09:45 Room Air 01/03/24 07:39 01/03/24 07:31 Room Air 01/03/24 03:41 Room Air Laboratory Results Laboratory Results - last 24 hr 01/03/24 05:42 WBC 7.54 RBC 5.40 Hgb 15.2 Hct 45.6 MCV 84.4 MCH 28.1 MCHC 33.3 RDW Std Deviation 41.4 RDW Coeff of Lance 13.5 Plt Count 246 MPV 8.9 L Sodium 136 Potassium 4.1 Chloride 98 Carbon Dioxide 31 Anion Gap 7 BUN 33 H Creatinine 1.17 Est Cr Clr Drug Dosing 27.8 Est GFR ( Amer) 49.2 Est GFR (Non-Af Amer) 42.5 BUN/Creatinine Ratio 28.2 H Glucose 106 H Calcium 10.1
--- NOTE | 2024-01-03 14:54 | Discharge Summary ---
Discharge Summary Date of Service January 03, 2024 Principal Dx & Hospital Course #1 = Principal Diagnosis (1) Atrial fibrillation with rapid ventricular response: (2) Nausea without vomiting: (3) Hyponatremia: (4) HTN, goal below 130/80: (5) Chronic atrial fibrillation: (6) Acute right heart failure: (7) SOB (shortness of breath): (8) Swelling of both lower extremities: (9) Spinal stenosis: (10) Atrial fibrillation: (11) HTN (hypertension): Plan 83yo F with a PMHx significant for HTN, atrial fibrillation on Xarelto, spinal stenosis and other medical problems listed below who presents with worsening swelling of lower extremities x 2 days. Pt discharged home with home health services. Right heart failure Hyponatremia BLE edema and 12 lbs weight gain over the past week BNP 678, HS troponin WNL CXR with Cardiomegaly with mild pulmonary vascular congestion No known h/o CHF Lives in [place] (in [facility] for a family event), follows with cardiology at [facility] in [place] Given 40mg IV lasix in ED, and was treated with IV lasix 60mg BID(nephrology managing), spironolactone 12.5mg daily Strict I&Os, daily weights, low sodium diet Echo -"LVEF 55 to 60%. RV is moderately dilated. RV systolic function is mild to moderately reduced. There is severe tricuspid regurg. RV systolic pressure is elevated at 40 to 50 mmHg." Cardiology consulted, and following - Stopped amlodipine, lyrica (due to volume overload), also stopped HCTZ (given hyponatremia) -IV Lasix 60mg BID switched to po torsemide 40mg BID by nephrology. Continue with torsemide 40mg DAILY -Continue KCl 20mEq daily -Aldactone 12.5mg daily -outpt polysomnography testing Close Cardiology followup after discharge Hyponatremia Advised IV lasix with KCl, transitioned to po torsemide Started on urea by nephrology, has since been discontinued due to increased BUN Nephrology recommended the following: -labs and cardio/nephro follow up when she goes to [place] to further adjust the meds. -BMP in a few days after discharge -Discontinue HCTZ permanently Close Nephrology followup after discharge Atrial fibrillation Continue Toprol 200mg daily, Xarelto Close cardiology followup after discharge 01/01- HRs have been trending higher, pt asymptomatic. Cardiology consulted once more, pt agreeable to addition of Digoxin doses currently. Pt loaded with Digoxin per Cardiology and discharged with Digoxin 0.125mg MWF regimen per recs. Close Cardiology followup after discharge HTN Discontinued amlodipine with BLE edema, Discontinued hctz (d/t hyponatremia) Added lisinopril while admitted Also on spironolactone 12.5mg as noted above continue Toprol as above PCP followup Spinal stenosis Worsening lower left sided back pain with radiation down leg - has evaluation with spinal surgery at [facility] next week Discontinued lyrica as it's possibly contributing to BLE edema Scheduled Tylenol, PRN oxy for moderate pain and PRN dilaudid for severe pain Notes For Next Care Provider Please ensure followup with Cardiology Per cardiology, consider outpt polysomnography testing Please ensure followup with Nephrology. Per Nephrology: -labs and cardio/nephro follow up when she goes to [place] to further adjust the meds. -BMP in a few days after discharge -Discontinue HCTZ permanently Medication Changes From Visit STOP home amlodipine, Lyrica and hydrochlorothiazide Continue with po torsemide 40mg daily, KCl 20mEq daily, Aldactone 12.5mg daily and lisinopril 10mg daily Digoxin 0.125mg MWF Admission HPI Per Admitting Provider This is an 83yo F with a PMH of HTN, atrial fibrillation on Xarelto, spinal stenosis and other medical problems listed below who presents with worsening swelling of lower extremities x 2 days. Patient lives in [place] but is in town for a bridal shower and has developed SOB and endorses 12 pound weight gain in the past week. Recent medication change of increased Lyrica dose for worsening radicular pain from spinal stenosis. Follows with cardiology at [facility] in [place]. Did not take Lyrica since yesterday afternoon. No amlodipine since yesterday. Denies history of CHF. No F/C, headache, lightheadedness, CP, N/V, abd pain, dysuria, diarrhea or constipation. Admission Exam Per Admitting Provider GENERAL APPEARANCE: AxOx4, generally well-appearing female no acute distress. HEENT: NC, AT. MMM. EOMI, clear conjunctiva, oropharynx clear. NECK: Supple without lymphadenopathy. No stiffness or restricted ROM. HEART: irregularly irregular, tachycardic to 90s-110s in room LUNGS: CTAB, moving air well. No crackles or wheezes are heard. ABDOMEN: firm, nontender, nondistended with good bowel sounds heard. BACK: No CVAT, no obvious deformity. EXTREMITIES: Without cyanosis, clubbing. BLE 2+ pitting edema NEUROLOGICAL: Grossly nonfocal. Alert and oriented, moving all 4 extremities. CN not formally tested but appear grossly intact. Observed to ambulate with normal gait. Skin: Warm and dry without any rash. Discharge Exam General: Alert, oriented. No acute distress Psych: Appropriate mood and affect Neuro: No gross deficits HEENT: NC/AT CV: Irregular rate and rhythm Resp: Breath sounds clear bilaterally, no increased effort of breathing. Abdomen: Soft, nontender, nondistended. Extremities: edema in lower extremities bilaterally. Updated Medication List Medication Instructions Recorded Confirmed Type amlodipine 10 mg tablet 10 mg PO QPM 12/24/23 12/24/23 History benazepril 20 1 tab PO QAM 12/24/23 12/24/23 History mg-hydrochlorothiazide 25 mg tablet biotin 10 mg tablet 10 mg PO DAILY 12/24/23 12/24/23 History cholecalciferol (vitamin D3) 50 50 mcg PO DAILY 12/24/23 12/24/23 History mcg (2,000 unit) capsule (Vitamin D3) metoprolol succinate 200 mg 200 mg PO QAM 12/24/23 12/24/23 History tablet,extended release 24 hr pregabalin 100 mg capsule 100 mg PO HS 12/24/23 12/24/23 History pregabalin 75 mg capsule 75 mg PO BID 12/24/23 12/24/23 History rivaroxaban 20 mg tablet (Xarelto) 20 mg PO QPM 12/24/23 12/24/23 History digoxin 125 mcg (0.125 mg) tablet 0.125 mg PO MoWeFr@1600 #30 tabs 01/03/24 Rx ([facility]) lisinopril 10 mg tablet 10 mg PO QAM #30 tabs 01/03/24 Rx potassium chloride 20 mEq 20 meq PO DAILY #30 tabs 01/03/24 Rx tablet,extended release(part/cryst) spironolactone 25 mg tablet 12.5 mg (1/2 x 25 mg) PO DAILY #30 01/03/24 Rx tabs torsemide 20 mg tablet 40 mg (2 x 20 mg) PO DAILY #30 tabs 01/03/24 Rx Hospital Stay Data Consultations 12/24/23 18:03 ED Decision to Admit Stat 12/24/23 21:38 Consult Cardiology Routine 12/25/23 08:00 Consult Nephrology Routine Diagnostic Imagining Performed Chest X-Ray 12/24/23 17:10 SINGLE VIEW CHEST CLINICAL HISTORY: Dyspnea FINDINGS: 2 AP, portable, upright chest radiographs are obtained. No prior studies are available for comparison at the time of dictation. The heart is enlarged noting atherosclerotic calcification of the thoracic aorta. There is pulmonary vascular congestion. No airspace consolidation or large pleural effusion is identified. Scarring/atelectasis is seen at the lung bases. No pneumothorax is seen. The skeletal structures are osteopenic. The bony thorax is grossly intact. IMPRESSION: Cardiomegaly with mild pulmonary vascular congestion. ACT 112: Negative or not required by law. Electronically signed by: Abe Chaudhary M.D. 12/24/2023 5:56 PM Pending Results Patient Have Any Pending Studies at Discharge: No Discharge Instructions Given to Patient (Per Discharging Provider) Ms. Browne, You were seen by Caridology and they made some changes to your medications: -STOP taking your home amlodipine and lyrica as it can cause swelling -STOP taking your home hydrochlorothiazide medication as it contributed to your low sodium levels -START taking torsemide 40mg daily with potassium supplements daily, spironolactone and lisinopril. Please keep close followup with Cardiology after discharge. Please also keep close follow up with your primary care provider after discharge. Please do not hesitate to come back to the emergency room if your symptoms worsen or return. It was a pleasure taking care of you while you were here. Total Time Total Time Spent Total Time Spent (In Minutes): 75
[2024-01-03] MEDS: DIGOXIN 0.125 MG TAB PO ONE (15:03)
[2024-01-03] MEDS ORDERED: DIGOXIN 0.125 MG TAB PO SCH (16:00)
[2024-01-04] MEDS ORDERED: DIGOXIN 0.125 MG TAB PO SCH (16:00)
== END 2024-01-03 15:51 | disposition home health service (06) | DRG 292 ==
LOC: ED 16:43 → SUATTDRO 18:29 → EDINP 18:29 → 2E 21:50 → 2N 12-31 23:43